=== PATIENT | female | born 1980 | race Caucasian/White ===

== ENCOUNTER 2022-08-19 13:29 | Emergency (ER) | payer OTHER, SELFPAY ==
--- NOTE | ~2022-08-19 | CT_ITS ---
EXAMINATION: CT abdomen pelvis wo con DATE: 08/19/2022 15:13 INDICATION: kidney stone TECHNIQUE: Computed tomography (CT) of the abdomen and pelvis was performed without intravenous contr ast. Automated exposure control and iterative reconstruction technique were employed. The dose-length product was 231.90 mGy-cm. COMPARISON: None. FINDINGS: Lower thorax: Unremarkable Liver: Normal. Biliary/Gallbladder: Gallbladder is absent. No bile duct dilation. Pancreas: No mass or duct dilation. Spleen: Normal. Adrenals:No mass. Kidneys: No mass, stone, or hydronephrosis. GI tract: Short segment mild wall thickening with pericolonic inflammatory change in the distal sigmo id. No small or large bowel dilation. Normal appendix. Scattered diverticuli. Mesentery/Peritoneum: No ascites, mass, or free air. Retroperitoneum: No mass. Pelvis: Mild and focal posterior bladder wall thickening, otherwise the pelvic organs are within norm al limits. Retroverted, retroflexed uterus. Soft Tissues: Soft tissues and body wall unremarkable. Bones: No acute osseous finding. IMPRESSION: Acute uncomplicated diverticulitis Reviewed, dictated and finalized at location K.
[2022-08-19 13:43] VITALS: BP 131/92; PULSE 70; TEMP 36.7; O2SAT 98
[2022-08-19 14:25] LABS: Basophils Percent Auto 0.2 % (0.2-1.2); Eosinophils Absolute Auto 0.2 K/mm3 (0-0.3); Eosinophils Percent Auto 1.2 % (0-4.4); Hematocrit 40.5 % (37.0-47.0); Hemoglobin 13.5 g/dL (12.0-15.0); Immature Granulocyte Absolute 0.05 K/mm3 (0.00-0.031); Immature Granulocyte Percent A 0.4 % (0-0.5); Lymphocytes Percent Auto 18.9 % (18.3-44.2); Mean Corpuscular HGB Conc 33.3 g/dl (32-36); Mean Corpuscular Hemoglobin 30.7 pg (26-34); Mean Platelet Volume 9.5 fl (7.4-10.4); Monocytes Absolute Auto 0.7 K/mm3 (0.1-0.6); Neutrophils Absolute Auto 8.9 K/mm3 (1.3-6.7); Neutrophils Percent Auto 73.3 % (45.5-73.1); Platelet Count Result 314 k/mm3 (150-375); Red Cell Distribution Width 11.9 % (11.5-14.5); White Blood Count 12.1 K/mm3 (4.5-10.0)
[2022-08-19 14:39] LABS: Add Urine Microscopic? YES; Alanine Aminotransferase 60 U/L (6-35); Albumin Level 4.2 g/dL (3.5-5.1); Alkaline Phosphatase 52 U/L (38-126); Anion Gap 8 mmol/L (8-16); Appearance Urine Cloudy (Clear); Aspartate Amino Transferase 38 U/L (14-36); Bacteria Urine Trace /hpf; Bilirubin Urine Negative (Negative); Bilirubin,Total 0.4 mg/dL (0.2-1.3); Blood Urea Nitrogen 11 mg/dL (7-17); Blood Urine Negative (Negative); Calcium 8.6 mg/dL (8.4-10.2); Carbon Dioxide 27 mmol/L (22-30); Chloride 103 mmol/L (98-107); Color Urine Straw (Yellow); Estimated CRCL calculation 69 ml/min; Estimated Glomerular Filt Rate > 60; Glucose 82 mg/dL (65-110); Glucose Urine UA Negative (Negative); Ketones Urine Negative (Negative); Leukocyte Esterase Ur Negative LEU/UL (Negative); Mucus Urine Rare /lpf; Nitrate Urine Negative (Negative); Potassium 4.1 mmol/L (3.4-5.0); Protein Urine Negative (Negative); RBC Urine 0-2 /hpf (0-2); Sodium 138 mmol/L (137-145); Squamous Epithelial Cell Urine Many /hpf (Few); Urobilinogen Urine Negative mg/dL (<2.0); WBC Urine 0-3 /hpf
[2022-08-19 15:06] LABS: Specific Grav Ur 1.004 (1.001-1.035)
--- NOTE | 2022-08-19 15:35 | ED.FEMALEGU ---
HPI - Female Genitourinary General Chief complaint: Urogenital-Female Stated complaint: kidney stones/ infection ? Time Seen by Provider: 08/19/22 15:17 Source: patient Mode of arrival: ambulatory Limitations: no limitations History of Present Illness HPI Narrative: Patient presents to the emergency department for left-sided low back pain. Ongoing over the last week. No certain injury or trauma. Patient does report she has to do heavy lifting at work. Over the last couple of days she noted the pain started to radiate into her abdomen as well which prompted her to be seen. Reports she has had some diarrhea. Denies fever, vomiting, dysuria, hematuria. Related Data Allergies Allergy/AdvReac Type Severity Reaction Status Date / Time No Known Allergies Allergy Verified 08/19/22 13:32 Review of Systems Review of Systems: CONSTITUTIONAL: Denies fever GASTROINTESTINAL: Reports abdominal pain and diarrhea. Denies nausea, vomiting GENITOURINARY: Denies dysuria or hematuria. All systems reviewed & are unremarkable except as noted in HPI and below PMFSH Past Medical History Medical History (Updated 08/19/22 @ 15:43 by Veronica Wright PA-C) No active medical problems Surgical History Surgical History (Updated 05/13/20 @ 15:09 by Mireille Pena MD) S/P cholecystectomy Family History Family History (Updated 07/02/14 @ 07:13 by DOCTOR UNKNOWN) Father Carcinoma of colon Grandparent Carcinoma of colon Family history of malignant neoplasm of ovary Social History Social History (Updated 05/13/20 @ 14:39 by Poonam Lockwood) Smoking status: Never smoker Second hand tobacco smoke exposure: No Alcohol intake: current Drinks per week: 5 Substance use: never Substance use type: does not use 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 HEAD: Normocephalic, atraumatic. EYES: EOMI. CHEST: Clear to auscultation. No respiratory distress. No wheezes rales or rhonchi HEART: Regular rate and rhythm. No murmur heard. Normal peripheral pulses. ABDOMEN: Soft, nondistended, normal active bowel sounds. Mildly tender to palpation in the left lower quadrant, without guarding. No CVA tenderness EXTREMITIES: Normal range of motion. No edema. SKIN: Warm, dry, no rash. NEURO: No focal deficits. Alert and oriented x3. PSYCH: Normal mood and affect Course Vital Signs Vital signs: Vital Signs Temperature 98.1 F 08/19/22 13:43 Pulse Rate 70 08/19/22 13:43 Blood Pressure 131/92 H 08/19/22 13:43 Pulse Oximetry 98 08/19/22 13:43 Temperature 98.1 F 08/19/22 13:43 Pulse Rate 70 08/19/22 13:43 Blood Pressure 131/92 H 08/19/22 13:43 Pulse Oximetry 98 08/19/22 13:43 MDM - Female Genitourinary MDM Narrative Medical decision making narrative: Patient presents the emergency department for left lower quadrant pain. Ongoing over the last couple of days. She is afebrile and nontoxic-appearing. CBC with mild leukocytosis to 12.1. Metabolic panel and lipase without concerning findings. UA without evidence of infection. Bedside test is negative. CT scan of the abdomen and pelvis shows acute uncomplicated diverticulitis. Patient will be started on oral antibiotics. Instructed to have close follow-up with her primary doctor. She was given warnings to return to the ER Lab Data Attestation: I reviewed the patient's lab results. Result diagrams: 08/19/22 13:40 08/19/22 13:40 Labs: Lab Results 08/19/22 08/19/22 08/19/22 Range/Units 13:40 13:40 13:40 WBC 12.1 H (4.5-10.0) K/mm3 RBC 4.40 (4.2-5.4) M/mm3 Hgb 13.5 (12.0-15.0) g/dL Hct 40.5 (37.0-47.0) % MCV 92.0 (80-100) fl MCH 30.7 (26-34) pg MCHC 33.3 (32-36) g/dl RDW 11.9 (11.5-14.5) % Plt
[2022-08-19 15:49] VITALS: BP 130/76; PULSE 86; RESP 16; O2SAT 99
== END 2022-08-19 16:03 | disposition home or self-care (01) ==
PROVIDERS: Emergency Provider Emergency Medicine; PCP Family Medicine
DX: K57.32 Diverticulitis of large intestine without perforation or abscess without bleeding (principal)
CPT/HCPCS: 36415; 74176; 80053; 81001; 81025; 85025; 99284

== ENCOUNTER 2024-10-17 22:38 | Emergency (ER) | payer OTHER, SELFPAY ==
--- NOTE | ~2024-10-17 | CT_ITS ---
EXAMINATION: CT abdomen pelvis w con DATE: 10/18/2024 01:39 INDICATION: Lower abdominal pain TECHNIQUE: Computed tomography (CT) of the abdomen and pelvis was performed with 100 mL Omnipaque-350 intravenous contrast. Automated exposure control and iterative reconstruction technique were employe d. The dose-length product was 281.32 mGy-cm. COMPARISON: None FINDINGS: Heart size is normal. No pericardial or pleural effusion. Focal hepatic steatosis at the ligamentum t eres. Cholecystectomy clips the gallbladder fossa. Spleen and a couple small splenules, pancreas, darron ateral adrenal glands and kidneys are normal. Moderate to large amount of stool scattered throughout the colon. Small bowel and appendix are normal. 2.3 cm uterine fibroid. Bladder and bilateral adnexa are unremarkable. No free intraperitoneal gas or fluid. No pathologically enlarged abdominal or pelvi c lymphadenopathy. Mild lumbar spondylosis. IMPRESSION: 1. No acute intra-abdominal/pelvic process. 2. 2.3 cm uterine fibroid. Reviewed, dictated and finalized at location A. NATAL BREASTFEEDING ASSISTANT
[2024-10-17 22:41] VITALS: BP 151/90; PULSE 80; RESP 16; TEMP 37.1; O2SAT 99
[2024-10-17 23:00] LABS: Basophils Absolute Auto 0.1 K/mm3 (0.0-0.1); Basophils Percent Auto 0.7 % (0.2-1.2); Eosinophils Absolute Auto 0.5 K/mm3 (0-0.3); Eosinophils Percent Auto 5.6 % (0-4.4); Hemoglobin 14.5 g/dL (12.0-15.0); Immature Granulocyte Absolute 0.01 K/mm3 (0.00-0.031); Immature Granulocyte Percent A 0.1 % (0-0.5); Lymphocytes Absolute Auto 2.74 K/mm3 (0.9-3.2); Lymphocytes Percent Auto 30.3 % (18.3-44.2); Mean Corpuscular HGB Conc 34.5 g/dl (32-36); Mean Corpuscular Hemoglobin 30.9 pg (26-34); Mean Corpuscular Volume 89.6 fl (80-100); Mean Platelet Volume 9.3 fl (7.4-10.4); Monocytes Absolute Auto 0.6 K/mm3 (0.1-0.6); Monocytes Percent Auto 6.9 % (2.6-8.5); Neutrophils Absolute Auto 5.1 K/mm3 (1.3-6.7); Neutrophils Percent Auto 56.4 % (45.5-73.1); Platelet Count Result 341 k/mm3 (150-375); Red Blood Count 4.69 M/mm3 (4.2-5.4); Red Cell Distribution Width 11.9 % (11.5-14.5); White Blood Count 9.1 K/mm3 (4.5-10.0)
[2024-10-17 23:02] LABS: Add Urine Microscopic? NO; Appearance Urine Clear (Clear); Bilirubin Urine Negative (Negative); Blood Urine Negative (Negative); Color Urine Yellow (Yellow); Glucose Urine UA Negative (Negative); Ketones Urine Negative (Negative); Leukocyte Esterase Ur Negative LEU/UL (Negative); Nitrate Urine Negative (Negative); Protein Urine Negative (Negative); Specific Grav Ur 1.008 (1.001-1.035); Urobilinogen Urine 0.2 mg/dL (<2.0)
[2024-10-17 23:13] LABS: Alanine Aminotransferase 23 U/L (6-35); Albumin Level 4.6 g/dL (3.5-5.1); Alkaline Phosphatase 50 U/L (38-126); Anion Gap 7 mmol/L (4-12); Aspartate Amino Transferase 28 U/L (14-36); Bilirubin,Total 0.4 mg/dL (0.2-1.3); Blood Urea Nitrogen 8 mg/dL (7-17); Calcium 8.8 mg/dL (8.4-10.2); Carbon Dioxide 23 mmol/L (22-30); Chloride 106 mmol/L (98-107); Estimated CRCL calculation 88 ml/min; Estimated Glomerular Filt Rate > 60; Glucose 117 mg/dL (65-110); Lipase 89 U/L (23-300); Potassium 3.8 mmol/L (3.4-5.0); Sodium 136 mmol/L (137-145)
--- NOTE | 2024-10-17 23:44 | PC.NURSE ---
Pt c/o left lower back pain and left lower abdominal/left groin pain and nausea. Pt states her sx started yesterday
[2024-10-18 00:36] LABS: Serum Qual hCG Negative
[2024-10-18 00:37] LABS: SPREG INTERNAL CONTROL Positive
[2024-10-18] MEDS: SODIUM CHLORIDE 0.9% IV 1,000 ML 999 ML IV CONT (01:12)
--- NOTE | 2024-10-18 01:15 | ED.ABDPAIN ---
HPI - Abdominal Pain General Chief Complaint: Abdominal Pain Stated Complaint: left flank pain Time Seen by Provider: 10/17/24 23:12 History of Present Illness HPI narrative: Patient is a 44-year-old female who presents to the ER with left lower quadrant abdominal pain that radiates to her back. she reports the dog pain started yesterday morning. Patient endorses accompanying chills, fever, urinary urgency. She reports her last menstrual period October 20. Patient endorses a history of cholecystectomy, diverticulitis, and ovarian cyst. She denies burning with urination. Patient reports the pain tends to get worse with movement, for example, patient reports that she could not bend over earlier to tie her shoes. Related Data Allergies Allergy/AdvReac Type Severity Reaction Status Date / Time No Known Allergies Allergy Verified 10/17/24 22:40 Review of Systems Review of Systems: All systems reviewed & are unremarkable except as noted in HPI and below PMFSH Past Medical History Medical History No active medical problems Surgical History Surgical History S/P cholecystectomy Family History Family History Father Carcinoma of colon Grandparent Carcinoma of colon Family history of malignant neoplasm of ovary Social History Social History Smoking status: Never smoker Second hand tobacco smoke exposure: No Alcohol intake: current Drinks per week: 5 Substance use: never Substance use type: does not use Living arrangements: alone Occupation/Education: occupation 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 HEAD: Normocephalic, atraumatic. NECK: Supple. No adenopathy, no masses. RESPIRATORY: Airway patent, respirations nonlabored. Clear to auscultation bilaterally, no rales, rhonchi, wheezing. CARDIOVASCULAR: Regular rate and rhythm without murmurs, rubs, or gallops. Peripheral pulses 2+ and equal bilaterally. ABDOMINAL: Soft, mildly tender in LLQ with palpation, nondistended, no hepatosplenomegaly. Normoactive BS. MUSCULOSKELETAL: Moves all extremities. Strength/ROM intact without gross deformities. SKIN: Warm, dry, normal color. No rashes. NEURO: A&O X3. Speech clear. Cranial nerves II-XII grossly intact. Steady gait. No ataxic movements. PSYCHIATRIC: Appropriate mood and affect. Normal interaction. Course Vital Signs Vital signs: Vital Signs Temperature 37.1 C 10/17/24 22:41 Pulse Rate 80 10/17/24 22:41 Respiratory Rate 16 10/17/24 22:41 Blood Pressure 151/90 H 10/17/24 22:41 Pulse Oximetry 99 10/17/24 22:41 Oxygen Delivery Room Air 10/17/24 22:41 Temperature 37.1 C 10/17/24 22:41 Pulse Rate 80 10/17/24 22:41 Respiratory Rate 16 10/17/24 22:41 Blood Pressure 151/90 H 10/17/24 22:41 Pulse Oximetry 99 10/17/24 22:41 Oxygen Delivery Room Air 10/17/24 22:41 MDM - Abdominal Pain MDM Narrative Medical decision making narrative: Patient is a 44-year-old female who presents to the ER with left lower quadrant abdominal pain that radiates to her back. she reports the dog pain started yesterday morning. Patient endorses accompanying chills, fever, urinary urgency. She reports her last menstrual period October 20. Patient endorses a history of cholecystectomy, diverticulitis, and ovarian cyst. She denies burning with urination. Labs Ordered: CBC, CMP, lipase, UA, serum , COVID Imaging Ordered: CT abdomen pelvis with con Results: Patient's CBC was unremarkable. Her CMP indicated a sodium of 136, creatinine of 0.60, glucose of 117. Patient's urinalysis was unremarkable. Her abdominal / pelvis CT scan indicated no acute abnormalities. Diagnosis: Abdominal pain unknown etiology Patient Education/Shared MDM: Results shared with patient. She endorses feeling better after 1 L normal saline IV fluid bolus administered. In case pt's pain is muscular in nature, pt will be discharged home with Cyclobenzaprine. Patient and her partner verbalized understanding and are in agreement with patient being discharged home. Differential Diagnosis Differential diagnosis: Likely abdominal pain, acute appendicitis, calculus of kidney, constipation, diverticulitis, gastroenteritis and small bowel obstruction Lab Data Attestation: I reviewed the patient's lab results. 10/17/24 22:52 10/17/24 22:52 Labs: Lab Results 10/17/24 10/18/24 Range/Units 22:52 02:27 WBC 9.1 (4.5-10.0) K/mm3 RBC 4.69 (4.2-5.4) M/mm3 Hgb 14.5 (12.0-15.0) g/dL Hct 42.0 (37.0-47.0) % MCV 89.6 (80-100) fl MCH 30.9 (26-34) pg MCHC 34.5 (32-36) g/dl RDW 11.9 (11.5-14.5) % Plt Count 341 (150-375) k/mm3 MPV 9.3 (7.4-10.4) fl Immature Gran % (Auto) 0.1 (0-0.5) % Neut % (Auto) 56.4 (45.5-73.1) % Lymph % (Auto) 30.3 (18.3-44.2) % [place] % (Auto) 6.9 (2.6-8.5) % Eos % (Auto) 5.6 H (0-4.4) % Baso % (Auto) 0.7 (0.2-1.2) % Lymph # (Auto) 2.74 (0.9-3.2) K/mm3 [place] # (Auto) 0.6 (0.1-0.6) K/mm3 Eos # (Auto) 0.5 H (0-0.3) K/mm3 Baso # (Auto) 0.1 (0.0-0.1) K/mm3 Abs Immat Gran (auto) 0.01 (0.00-0.031) K/mm3 Absolute Neuts (auto) 5.1 (1.3-6.7) K/mm3 Absolute Nucleated RBC 0.000 (0.0-0.012) K/mm3 Nucleated RBC % 0.0 (0.0-0.2) % Sodium 136 L (137-145) mmol/L Potassium 3.8 (3.4-5.0) mmol/L Chloride 106 (98-107) mmol/L Carbon Dioxide 23 (22-30) mmol/L Anion Gap 7 (4-12) mmol/L BUN 8 (7-17) mg/dL Creatinine 0.60 L (0.7-1.0) mg/dL Estim Creat Clear Calc 88 ml/min Estimated GFR > 60 (59 - ) Glucose 117 H (65-110) mg/dL Calcium 8.8 (8.4-10.2) mg/dL Total Bilirubin 0.4 (0.2-1.3) mg/dL AST 28 (14-36) U/L ALT 23 (6-35) U/L Alkaline Phosphatase 50 (38-126) U/L Total Protein 8.0 (6.3-8.2) g/dL Albumin 4.6 (3.5-5.1) g/dL Lipase 89 (23-300) U/L Serum HCG, Qual Negative Urine Color Yellow (Yellow) Urine Appearance Clear (Clear) Urine pH 7.0 (5.0-9.0) Ur Specific [place] 1.008 (1.001-1.035) Urine Protein Negative (Negative) mg/dL Urine Glucose (UA) Negative (Negative) mg/dL Urine Ketones Negative (Negative) mg/dL Ur Blood (Man) Negative (Negative) Urine Nitrate Negative (Negative) Urine Bilirubin Negative (Negative) Urine Urobilinogen 0.2 (<2.0) mg/dL Leukocyte Esterase Rfl Negative (Negative) CAR/UL Influenza A (RT-PCR) Pending Influenza B (RT-PCR) Pending RSV (RT-PCR) Pending SARS-CoV-2 RNA (RT-PCR) Pending Imaging Data Attestation: I personally reviewed and interpreted this imaging study as follows: Radiologist's impression: Patient's abdominal CT scan showed no acute abnormalities. Discharge Plan Discharge Clinical Impression: Abdominal pain of unknown etiology Patient Disposition: Home, Self-Care Condition: Stable Instructions: Antibiotic Form, Abdominal Pain (ED) Additional Instructions: Please return to the ER with an worsening symptoms. Follow-up with primary care provider in the next 2-3 days. Take all medications as prescribed. Patient Language: St Helen[place] Prescriptions: New cyclobenzaprine 5 mg tablet 5 mg PO TID PRN (Reason: muscle spasm) Qty: 5 0RF No Action amoxicillin-pot clavulanate 875-125 mg tablet 1 tablet PO Q12H 10 Days Qty: 20 0RF Follow-up/Referrals: PHYSICIAN NOT ON STAFF,NONSTAFF [Primary Care Provider] - Time of Disposition: 03:11
[2024-10-18 03:06] LABS: Influenza A QL RT-PCR Negative (Negative); Influenza B QL RT-PCR Negative (Negative); RSV RNA, RT-PCR Negative (Negative); SARS-CoV-2 RNA PCR Negative (Negative)
[2024-10-18 03:59] VITALS: BP 134/82; PULSE 84; RESP 18; O2SAT 99
--- OUTSIDE RECORDS SUMMARY | 2024-10-21 16:28 | XMS_ITS | Encounter Summary ---
Author Organization [facility] Healthcare Address [address] [place] [id number] Care Team Providers Care Centrifugal Operator Name Role Phone Chase Blanchard Primary Care Provider Unavailabl e Encounter Details Date Type Department Care Team (Late st Contact Info) Description 08/11/2008 12:01 AM CDT - 08/11/2008 11:59 PM CDT Hospital Encounter [facility] Errol Dunne MD [address] [place] [address] [place] [address] Social History Tobacco Use Types Packs/Day Years Used Date Smoking Tobacco: Never Assessed Comments Unknown Sex and Gender Information Value Date Recorded Sex Assigned at Not on file Legal Sex Female 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
--- OUTSIDE RECORDS SUMMARY | 2024-10-21 16:28 | XMS_ITS | Encounter Summary ---
Author Organization [facility] Healthcare Address [address] [place] [id number] Care Team Providers Care Link Cutter Name Role Phone Chase Blanchard Primary Care Provider Unavailabl e Encounter Details Date Type Department Care Team (Late st Contact Info) Description 11/09/2011 7:13 AM SHOW CARD LETTERER - 11/09/2011 11:59 PM SHOW CARD LETTERER Hospital Encounter [facility]IN[facility] Chase Blanchard Enlarged lymph nodes Social History Tobacco Use Types Packs/Day Years Used Date Smoking Tobacco: Never Assessed Alcohol Use Standard Drinks/Week Comments Yes 0 (1 standard drink = 0.6 oz pur e alcohol) Comments Unknown Sex and Gender Information Value Date Recorded Sex Assigned at Not on file Legal Sex Female 11:56 PM SHOW CARD LETTERER Gender Identity Not on file Sexual Orientation Not on file documented as of this encounter Plan of Treatment Not on file documented as of this encounter Visit Diagnoses Diagnosis Enlarged lymph nodes Enlargement of lymph nodes documented in this encounter Care Teams Link Cutter Relationship Specialty Start Date End Date Chase Blanchard PCP - General 06/24/09 08/18/22 documented as of this encounter
--- OUTSIDE RECORDS SUMMARY | 2024-10-21 16:28 | XMS_ITS | Encounter Summary ---
Author Organization [facility] Address [address] [place] [id number] Care Team Providers Care Pulverizer Name Role Phone Dennis Brito MD Primary Care Provider Marcelina vailable Encounter Details Date Type Department Care Team (Late st Contact Info) Description 10/20/2020 Lab Requisition [facility] [address] [id number] [place] [address] [place] [address] Social History Tobacco Use Types Packs/Day Years Used Date Smoking Tobacco: Never Alcohol Use Standard Drinks/Week Comments Yes 2 (1 standard drink = 0.6 oz pur e alcohol) Sexually Active Control Partners Comments Yes Comments No Sex and Gender Information Value Date Recorded Sex Assigned at Not on file Legal Sex Female 8:54 PM CDT Gender Identity Not on file Sexual Orientation Not on file documented as of this encounter Plan of Treatment Not on file documented as of this encounter Procedures Procedure Name Priority Date/Time Associated Diagnosis Comments SARS-COV-2 PCR [facility] ONLY Routine 10/20/2020 1:16 PM TOP CLEANER documented in this encounter Visit Diagnoses Not on filedocumented in this encounter Care Teams Pulverizer Relationship Specialty Start Date End Date Dennis Brito MD PCP - General Internal Medicine 10/14/15 04/20/21 documented as of this encounter
--- OUTSIDE RECORDS SUMMARY | 2024-10-21 16:28 | XMS_ITS | Encounter Summary ---
Author Organization [facility] Address [address] [facility] [address] [place] [address] Care Team Providers Care Ecommerce Marketing Manager Name Role Phone Demar Ceballos MD Primary Care Provider [phone] Demar Ceballos MD Unavailable [phone] Reason for Visit * Reason Comments Insect Bite Onset of s/s was Sun.Location: R buttocks- Red bumpy, itchy and painful. Also has a swollen lymph node on her R side of the pelvis, noticed Sunday evening. Sore and tender. Feels like it has gotten larger.Self medicating w/ hydrocortisone. Encounter Details Date Type Department Care Team (Late st Contact Info) Description 08/03/2023 2:30 PM CDT Office Visit [facility] [address] [address] Shantell Bonner NP [address] [place] [address] [address] [place] [address] Herpes zoster without complication (Primary Dx) Social History Tobacco Use Types Packs/Day Years Used Date Smoking Tobacco: Never Smokeless Tobacco: Never Alcohol Use Standard Drinks/Week Comments Yes 0 (1 standard drink = 0.6 oz pur e alcohol) on occasion Comments Unknown Sex and Gender Information Value Date Recorded Sex Assigned at Not on file Legal Sex Female 11:56 PM CONTROL BOARD OPERATOR Gender Identity Not on file Sexual Orientation Not on file documented as of this encounter Last Filed Vital Signs Vital Sign Reading Time Taken Comments Blood Pressure 120/78 08/03/2023 2:11 PM CDT Pulse 75 08/03/2023 2:11 PM CDT Temperature 36.9 ??C (98.4 ??F) 08/03/2023 2:11 PM CD T Respiratory Rate 16 08/03/2023 2:11 PM CDT Oxygen Saturation 98% 08/03/2023 2:11 PM CDT Inhaled Oxygen Concentration - - Weight 59.4 kg (131 lb) 08/03/2023 2:11 PM CDT Height 154.9 cm (5' 1 ) 08/03/2023 2:11 PM CDT Body Mass Index 24.75 08/03/2023 2:11 PM CDT documented in this encounter Patient Instructions * Patient Instructions* Shantell oBnner, TRIM MECHANIC - 08/03/2023 2:30 PM CDT Shingles: Is shingles contagious? Yes and No. It is NOT possible to catch shingles from someone who has therash. But it is possible to catch the virus and then get sick with chickenpox. Shingles and chickenpox are caused by the same virus. You probably will NOT catch the virus (or get chickenpox) if you: Had chickenpox or shingle sin the past Had the chickenpox vaccine Were born in the [place] before 1979 (most people born before 1979 have had chickenpox even if they don't remember). Be careful around people who have never had chickenpox. Do not let them touch your rash. If they do, they could get sick with chickenpox. In rare cases, people can even get chickenpox from just beingnear someone with shingles. This is most likely in people who can not fight infections well. At first, shingles causes a weird sensation on your skin. You might feel itching, burning, pain, ortingling. Some people get a fever, feel sick, or get a headache. Within 1 to 2 days, a rash with blisters appears. Blisters most often appear in a band across the chest and back. They can show up on other parts of the body, too. The blisters cause pain that can be mild to severe. Within 3 to 4 days, shingles blisters can become open sores or ulcers . These ulcers can get infected. Within 7 to 10 days, the rash should scab over. By then, most people are no longer contagious. Shingles can also cause: -Skin infections (Keep the parts of your skin that have a rash clean and dry) -Eye problems (if the rash is near your eyes, follow up with parliamentary archivist as soon as possible) -Ear problems (if rash is near your ears) -Dangerous infections in people who have other health problems -You can take over the counter pain medication such as tylenol and / or ibuprofen (per package directions) as needed. * Attachments The following attachments cannot be sent through Care Everywhere. * Shingles (Automatic Presser) ([place] Islander) documented in this encounter Ordered Prescriptions Prescription Sig Dispense Quantity Refills Last Filled Start Date End Date valACYclovir (Valtrex) 1 gram tabletIndications: Herpes zoster without complication Take 1 tablet (1,000 mg total) by mouth every 8 (eight) hours for 7 days 21 tablet 08/03/2023 08/10/2023 documented in this encounter Progress Notes * Shantell Bonner NP - 08/03/2023 2:30 PM CDT Images from the original note were not included. Subjective/Objective Patient ID: Nydia Da Silva is a 42 y.o. female. Chief Complaint Insect Bite (Onset of s/s was Sunday./Location: R buttocks- Red bumpy, itchy and painful. Also has a swollen lymph node on her R side of the pelvis, noticed Sunday evening. Sore and tender. Feels like it has gotten larger./Self medicating w/ hydrocortisone. ) Patient presents to the clinic with reports of painful rash to her upper right butt cheek for 4 days. Patient reports area was tender prior to rash showing up. Patient denies fevers, chills, red streaking from rash, and difficulty breathing. Patient has used hydrocortisone cream on her rash with norelief. Review of Systems Constitutional: Negative for chills, fatigue and fever. Respiratory: Negative for cough. Cardiovascular: Negative for chest pain. Skin: Positive for rash (right buttocks). Neurological: Negative for weakness and headaches. Physical Exam Vitals reviewed. Constitutional: General: She is not in acute distress. Appearance: Normal appearance. She is not ill-appearing. HENT: Head: Normocephalic. Mouth/Throat: Lips: [place]. Cardiovascular: Rate and Rhythm: Normal rate. Pulmonary: Effort: Pulmonary effort is normal. Breath sounds: Normal breath sounds. Skin: General: Skin is warm. Comments: Erythematous papules in grouped, linear distribution with multiple vesicles present. No increased warmth, erythema, induration, and/or red streaking from the wound/lesions. No active drainage. Sensation intact. Mild TTP. Neurological: Mental Status: She is alert and oriented to person, place, and time. Psychiatric: Mood and Affect: Mood normal. Vitals: 08/03/23 1411 BP: 120/78 BP Location: Right arm Patient Position: Sitting Pulse: 75 Resp: 16 Temp: 36.9 ??C (98.4 ??F) TempSrc: Temporal SpO2: 98% Weight: 59.4 kg (131 lb) Height: 154.9 cm (5' 1 ) Assessment/Plan --assessment and patient's symptoms consistent with shingles. Did discuss with patient probability of HSV infection. Patient denies any history of HSV and reports a monogamous relationship with no concerns for STDs. --prescribed antiviral, use as directed --patient may take Tylenol or ibuprofen as needed for pain --monitor rash in if it worsens follow-up with primary care doctor, clinic, or in the ER if needed. Diagnoses and all orders for this visit: Herpes zoster without complication (Primary) - valACYclovir (Valtrex) 1 gram tablet; Take 1 tablet (1,000 mg total) by mouth every 8 (eight) hours for 7 days Patient Education: Shingles: Is shingles contagious? Yes and No. It is NOT possible to catch shingles from someone who has therash. But it is possible to catch the virus and then get sick with chickenpox. Shingles and chickenpox are caused by the same virus. You probably will NOT catch the virus (or get chickenpox) if you: Had chickenpox or shingle sin the past Had the chickenpox vaccine Were born in the [place] before 1979 (most people born before 1979 have had chickenpox even if they don't remember). Be careful around people who have never had chickenpox. Do not let them touch your rash. If they do, they could get sick with chickenpox. In rare cases, people can even get chickenpox from just beingnear someone with shingles. This is most likely in people who can not fight infections well. At first, shingles causes a weird sensation on your skin. You might feel itching, burning, pain, ortingling. Some people get a fever, feel sick, or get a headache. Within 1 to 2 days, a rash with blisters appears. Blisters most often appear in a band across the chest and back. They can show up on other parts of the body, too. The blisters cause pain that can be mild to severe. Within 3 to 4 days, shingles blisters can become open sores or ulcers . These ulcers can get infected. Within 7 to 10 days, the rash should scab over. By then, most people are no longer contagious. Shingles can also cause: -Skin infections (Keep the parts of your skin that have a rash clean and dry) -Eye problems (if the rash is near your eyes, follow up with parliamentary archivist as soon as possible) -Ear problems (if rash is near your ears) -Dangerous infections in people who have other health problems -You can take over the counter pain medication such as tylenol and / or ibuprofen (per package directions) as needed. Disposition Treatment plan including expectations, follow up, and return precautions discussed with patient/parent, verbalizes understanding. Medication dosage, use, and potential adverse reactions discussed with patient/parent. Advised to follow up with PCP if symptoms do not resolve as expected or sooner if condition worsens. Signs/symptoms warranting ER evaluation reviewed. Patient and/or guardian was given an opportunity to ask questions, questions answered. Shantell Bonner NP 08/03/23 2:33 PM documented in this encounter Plan of Treatment Not on file documented as of this encounter Visit Diagnoses Diagnosis Herpes zoster without complication- Primary documented in this encounter Historical Medications * This list may reflect changes made after this encounter. albuterol HFA (PROVENTIL HFA,VENTOLIN HFA,PROAIR HFA) 90 mcg/actuation inhaler TAKE 2 PUFFS BY MOUTH 4 TIMES A DAY NEEDED 05/30/2023 added in this encounter Care Teams Ecommerce Marketing Manager Relationship Specialty Start Date End Date Demar Ceballos MD PCP - General Internal Medicine 08/03/23 Demar Ceballos MD Internal Medicine 08/03/23 documented as of this encounter
--- OUTSIDE RECORDS SUMMARY | 2024-10-21 16:28 | XMS_ITS | Encounter Summary ---
Author Organization [facility] Address [address] [place] [address] Care Team Providers Care Transcription Coordinator Name Role Phone Chase Blanchard Primary Care Provider Unavailabl e Reason for Visit * Reason Comments Flank Pain Right sided Encounter Details Date Type Department Care Team (Late st Contact Info) Description 11/20/2017 3:08 PM REWORK MACHINE OPERATOR - 11/20/2017 4:48 PM REWORK MACHINE OPERATOR Emergency [facility] Emergency Department [address] [place] [address] Beverley Lay MD [address] [place] [address] [id number] [place] [address] Muscle spasm of back (Primary Dx) Discharge Disposition: Discharge to home or self care Social History Tobacco Use Types Packs/Day Years Used Date Smoking Tobacco: Never Smokeless Tobacco: Never Alcohol Use Standard Drinks/Week Comments Yes 0 (1 standard drink = 0.6 oz pur e alcohol) on occasion Comments Unknown Sex and Gender Information Value Date Recorded Sex Assigned at Not on file Legal Sex Female 11:56 PM REWORK MACHINE OPERATOR Gender Identity Not on file Sexual Orientation Not on file documented as of this encounter Last Filed Vital Signs Vital Sign Reading Time Taken Comments Blood Pressure 143/99 11/20/2017 3:14 PM REWORK MACHINE OPERATOR Pulse 74 11/20/2017 3:14 PM REWORK MACHINE OPERATOR Temperature 37.2 ??C (98.9 ??F) 11/20/2017 3:14 PM CS T Respiratory Rate 18 11/20/2017 3:14 PM REWORK MACHINE OPERATOR Oxygen Saturation 99% 11/20/2017 3:14 PM REWORK MACHINE OPERATOR Inhaled Oxygen Concentration - - Weight 53.5 kg (118 lb) 11/20/2017 3:14 PM REWORK MACHINE OPERATOR Height 154.9 cm (5' 1 ) 11/20/2017 3:14 PM REWORK MACHINE OPERATOR Body Mass Index 22.3 11/20/2017 3:14 PM REWORK MACHINE OPERATOR documented in this encounter Discharge Instructions * Attachments The following attachments cannot be sent through Care Everywhere. * Back Spasm, No Trauma ([place]e) documented in this encounter Medications at Time of Discharge cyclobenzaprine (FLEXERIL) 10 mg tablet Take 1 tablet (10 mg total) by mouth every 8 (eight) hours as needed for muscle spasms. 20 tablet 11/20/2017 documented as of this encounter Ordered Prescriptions Prescription Sig Dispense Quantity Refills Last Filled Start Date End Date cyclobenzaprine (FLEXERIL) 10 mg tablet Take 1 tablet (10 mg total) by mouth every 8 (eight) hours as needed for muscle spasms. 20 tablet 11/20/2017 documented in this encounter Discharge Disposition Disposition Code Departure Means Destination Discharge to home or self care documented in this encounter ED Notes * Stephanie Vargas, MARGARITO - 11/20/2017 3:24 PM CST HPI Chief Complaint Patient presents with ??? Flank Pain Right sided Pt states she had flu like symptoms last week. Symptoms have started to improve however she has had5 days of right flank pain. Pain does not improve with Ibuprofen. Nothing makes pain better or worse. Pain waxes and wanes. No recent fevers. Denies urinary symptoms. No other complaints. Patient History History reviewed. No pertinent past medical history. Past Surgical History: Procedure Laterality Date ??? CHOLECYSTECTOMY 2006 gallbladder removed Family History Problem Relation Age of Onset ??? Colon cancer Father Cancer -colon; ??? Migraines Father Migraines; ??? Other Mother Alive and well; ??? Other Father Alive and well; Social History Substance Use Topics ??? Smoking status: Never Smoker ??? Smokeless tobacco: Never Used ??? Alcohol use Yes Comment: on occasion Review of Systems Review of Systems Constitutional: Negative for chills and fever. HENT: Negative for ear pain and sore throat. Eyes: Negative for pain and visual disturbance. Respiratory: Positive for cough. Negative for shortness of breath. Cardiovascular: Negative for chest pain and palpitations. Gastrointestinal: Negative for abdominal pain and vomiting. Genitourinary: Negative for dysuria and hematuria. Musculoskeletal: Positive for back pain. Negative for arthralgias. Skin: Negative for color change and rash. Neurological: Negative for seizures and syncope. All other systems reviewed and are negative. Physical Exam ED Triage Vitals [11/20/17 1514] Temp Pulse Resp BP SpO2 37.2 ??C (98.9 ??F) 74 18 143/99 99 % Temp src Heart Rate Source Patient Position BP Location FiO2 (%) Oral -- -- -- -- Physical Exam Constitutional: She appears well-developed and well-nourished. No distress. HENT: Head: Normocephalic and atraumatic. Eyes: Conjunctivae are normal. Neck: Neck supple. Cardiovascular: Normal rate and regular rhythm. No murmur heard. Pulmonary/Chest: Effort normal and breath sounds normal. No respiratory distress. Abdominal: Soft. There is no tenderness. Musculoskeletal: She exhibits no edema. Mild right CVA tenderness. No vertebral tenderness. Neurological: She is alert. Skin: Skin is warm and dry. Psychiatric: She has a normal mood and affect. Nursing note and vitals reviewed. ED Course & MDM ED Course MDM Muscle spasm of back Stephanie Vargas NP 11/20/17 1648 Cosigned by Beverley Lay MD at 11/20/2017 9:06 PM REWORK MACHINE OPERATOR RK MACHINE OPERATOR RK MACHINE OPERATOR Associated attestation - Beverley Lay MD - 11/20/2017 9:06 PM REWORK MACHINE OPERATOR ED Attestation Based on the medical record the care appears appropriate. . But I was not required to see or examine the patient. Hence I was not involved in patient care. documented in this encounter Plan of Treatment Not on file documented as of this encounter Procedures Procedure Name Priority Date/Time Associated Diagnosis Comments CT KUB STONE WO CONTRAST ED 11/20/2017 4:32 PM REWORK MACHINE OPERATOR XR CHEST PA LATERAL 2 VIEWS ED 11/20/2017 3:59 PM REWORK MACHINE OPERATOR URINALYSIS AND REFLEX TO MICROSCOPIC AND CULTURE STAT 11/20/2017 3:17 PM REWORK MACHINE OPERATOR URINALYSIS, MICROSCOPIC ONLY STAT 11/20/2017 3:17 PM REWORK MACHINE OPERATOR DISCHARGE LABORATORY CUMULATIVE REPORT 11/20/2017 12:00 AM REWORK MACHINE OPERATOR documented in this encounter Results * CT KUB Stone WO Contrast (11/20/2017 4:32 PM REWORK MACHINE OPERATOR) Anatomical Region Laterality Modality Abdomen N/A Computed Tomogra phy Impressions 11/20/2017 4:40 PM REWORK MACHINE OPERATOR NO HYDRONEPHROSIS OR NEPHROLITHIASIS. MARKEDLY DISTENDED URINARY BLADDER. NO ACUTE ABDOMINAL PELVIC PATHOLOGY OTHERWISE NOTED. Electronically signed by: Jen Pimentel M.D. Narrative 11/20/2017 4:40 PM REWORK MACHINE OPERATOR RESULT: Examination: ??CT KUB STONE WO CONTRAST Date: 11/20/2017 4:25 PM Clinical History: ?? Right flank pain Technique: Noncontrast CT abdomen pelvis obtained with renal stone protocol. Comparison: CT abdomen pelvis 08/20/2016 Findings: No hydronephrosis or nephrolithiasis or perinephric edema is seen. The upper abdomen is only partially visualized but noncontrast appearance of the imaged liver, spleen, pancreas, and adrenals is unremarkable. ??There are 2 small splenules. ??Cholecystectomy clips noted. ??No biliary distention is seen. ??Normal caliber aorta is present. Nondistended stomach is seen. ??Moderate retained colonic contents noted. ??A normal appendix is seen. ??No small bowel obstruction noted. A markedly distended urinary bladder is seen. ??Unenhanced appearance of uterus and adnexa is not remarkable. ??A tubular lucency within the vagina is compatible with a tampon. ??No free fluid is seen. ?? No enlarged nodes are identified. ??Small small mesenteric nodes are again seen. Procedure Note Jen Pimentel MD / ProviderMarilu MD - 11/20/2017 RESULT: Examination: CT KUB STONE WO CONTRAST Date: 11/20/2017 4:25 PM Clinical History: Right flank pain Technique: Noncontrast CT abdomen pelvis obtained with renal stone protocol. Comparison: CT abdomen pelvis 08/20/2016 Findings: No hydronephrosis or nephrolithiasis or perinephric edema is seen. The upper abdomen is only partially visualized but noncontrast appearance of the imaged liver, spleen, pancreas, and adrenals is unremarkable. There are 2 small splenules. Cholecystectomy clips noted. No biliary distention is seen. Normal caliber aorta is present. Nondistended stomach is seen. Moderate retained colonic contents noted. A normal appendix is seen. No small bowel obstruction noted. A markedly distended urinary bladder is seen. Unenhanced appearance of uterus and adnexa is not remarkable. A tubular lucency within the vagina is compatible with a tampon. No free fluid is seen. No enlarged nodes are identified. Small small mesenteric nodes are again seen. IMPRESSION: NO HYDRONEPHROSIS OR NEPHROLITHIASIS. MARKEDLY DISTENDED URINARY BLADDER. NO ACUTE ABDOMINAL PELVIC PATHOLOGY OTHERWISE NOTED. Electronically signed by: Jen Pimentel M.D. Stephanie Vargas NP IMG CT PROCEDURES Fi nal Result * XR Chest Pa Lateral 2 Vw (11/20/2017 3:59 PM REWORK MACHINE OPERATOR) Anatomical Region Laterality Modality Body, Chest N/A Computed Radiogr aphy Impressions 11/20/2017 4:04 PM REWORK MACHINE OPERATOR No Acute Cardiopulmonary Abnormality. Electronically signed by: Kal Castaneda M.D. Narrative 11/20/2017 4:04 PM REWORK MACHINE OPERATOR RESULT: EXAMINATION: PA AND LATERAL CHEST RADIOGRAPHS Date: 11/20/2017 3:50 PM History: COUGH, PERSISTENT Comparison: None. Findings: The lungs are free of acute peripheral opacities. There is no pneumothorax or pleural effusion. The heart size is normal. The visualized osseous structures appear intact. Procedure Note Kal Castaneda MD / Provider, MD Marilu - 11/20/2017 RESULT: EXAMINATION: PA AND LATERAL CHEST RADIOGRAPHS Date: 11/20/2017 3:50 PM History: COUGH, PERSISTENT Comparison: None. Findings: The lungs are free of acute peripheral opacities. There is no pneumothorax or pleural effusion. The heart size is normal. The visualized osseous structures appear intact. IMPRESSION: No Acute Cardiopulmonary Abnormality. Electronically signed by: Kal Castaneda M.D. Stephanie Vargas CRIMINAL RESEARCH SPECIALIST IMG XR PROCEDURES Fi nal Result * (ABNORMAL) Urinalysis, microscopic only (11/20/2017 3:17 PM REWORK MACHINE OPERATOR) RBC, ur 0 0 - 3 /HPF [facility] WBC, ur <1 0 - 5 /HPF [facility] Bacteria, ur Trace [facility] Epithelial cells, renal, ur 0 0 - 0 /HPF [facility] Epithelial cells, squamous, ur 1 /LPF [facility] Hyaline casts, ur 1(H) 0 - 0 /LPF [facility] Urine 11/20/2017 3:17 PM REWORK MACHINE OPERATOR 11/20/2017 3:25 PM REWORK MACHINE OPERATOR Narrative [facility] - 11/20/2017 4:13 PM REWORK MACHINE OPERATOR Brooks Noriega MD LAB [place]INE [place] [id number] [address] [place] [address] * (ABNORMAL) Urinalysis reflex to microscopic and culture (11/20/2017 3:17 PM REWORK MACHINE OPERATOR) Color, ur Straw [facility] Clarity, ur Clear [facility] Specific gravity, ur 1.004 1.001 - 1.033 [facility] pH, ur 7.0 5.0 - 8.0 [facility] Protein, ur ql Negative Negative [facility] Glucose, ur ql Negative Negative [facility] Ketones, ur Negative Negative [facility] Bilirubin, ur Negative Negative [facility] Blood, ur 1+(A) Negative [facility] Urobilinogen, ur <2.0 <2.0 [facility] Nitrites, ur Negative Negative [facility] Leukocyte esterase, ur Negative Negative [facility] Urine 11/20/2017 3:17 PM REWORK MACHINE OPERATOR 11/20/2017 3:25 PM REWORK MACHINE OPERATOR Narrative [facility] - 11/20/2017 3:53 PM REWORK MACHINE OPERATOR Beverley Lay MD LAB MICROBIOLOGY - GENERAL MARIBEL KOKOELENO Final Result JOCELINE JIMENEZ [address] [place] [address] * DISCHARGE LABORATORY CUMULATIVE REPORT (11/20/2017 12:00 AM REWORK MACHINE OPERATOR) Narrative 11/20/2017 12:00 AM REWORK MACHINE OPERATOR Ordered by an unspecified provider. Historical Provider LAB BLOOD ORDERABLES Adela l Result documented in this encounter Visit Diagnoses Diagnosis Muscle spasm of back- Primary documented in this encounter Administered Medications Inactive Administered Medications - up to 3 most recent administrations Medication Order MAR Action Action Date Dose Rate Site ketorolac (TORADOL) intramuscular injection 60 mg 60 mg, intramuscular, Once, On Sun11/20/17 at 1530, For 1 dose Given 11/20/2017 3:36 PM REWORK MACHINE OPERATOR 60 mg Right Ventrogluteal documented in this encounter Active and Recently Administered Medications Times are shown in REWORK MACHINE OPERATOR. Scheduled Medication Order 11/18/2017 11/19/2017 11/20/2017 ketorolac (TORADOL) intramuscular injection 60 mg (COMPLETED) 60 mg, intramuscular, Once, On Sun11/20/17 at 1530, For 1 dose 1536 (Given - Provid er: Donna Ruiz RN) documented in this encounter Orders Medications Ordered That Govind ht Not Have Been Administered Count Last Ordered Date First Ordered Date ketorolac (TORADOL) intramus cular injection 60 mg 1 11/20/2017 documented in this encounter Care Teams Transcription Coordinator Relationship Specialty Start Date End Date Chase Blanchard PCP - General 06/24/09 08/18/22 documented as of this encounter
--- OUTSIDE RECORDS SUMMARY | 2024-10-21 16:28 | XMS_ITS | Encounter Summary ---
Author Organization [facility] Address [address] [place] [address] Care Team Providers Care Rehab Nurse Name Role Phone Dennis Brito MD Primary Care Provider Marcelina vailable Encounter Details Date Type Department Care Team (Late st Contact Info) Description 10/20/2020 1:00 PM TALLOW PUMPER Rapid Evaluation [facility] Mobile Testing [address] [place] [address] Social History Tobacco Use Types Packs/Day Years [...] on filedocumented in this encounter Care Teams Rehab Nurse Relationship Specialty Start Date End Date Dennis Brito MD PCP - General Internal Medicine 10/14/15 04/20/21 documented as of this encounter
--- OUTSIDE RECORDS SUMMARY | 2024-10-21 16:28 | XMS_ITS | Encounter Summary ---
Author Organization [facility] Healthcare Address [address] [place] [address] Care Team Providers Care Student Career Development Specialist Name Role Phone Demar Ceballos MD Primary Care Provider [phone] Demar Ceballos MD Unavailable [phone] Encounter Details Date Type Department Care Team (Latest Contact Info) Description 06/07/2024 8:55 AM CDT - 06/07/2024 11:59 PM CDT Hospital Encounter [address] [address] Nasopharyngitis acute Discharge Disposition: Discharge to home or self care Social History Tobacco Use Types Packs/Day Years Used Date Smoking Tobacco: Never Smokeless Tobacco: Never Alcohol Use Standard Drinks/Week Comments Yes 0 (1 standard drink = 0.6 oz pur e alcohol) on occasion Comments Unknown Sex and Gender Information Value Date Recorded Sex Assigned at Not on file Legal Sex Female 11:56 PM TRUCK LOADER Gender Identity Not on file Sexual Orientation Not on file documented as of this encounter Medications at Time of Discharge albuterol HFA (PROVENTIL HFA,VENTOLIN HFA,PROAIR HFA) 90 mcg/actuation inhaler TAKE 2 PUFFS BY MOUTH 4 TIMES A DAY NEEDED 05/30/2023 cyclobenzaprine (FLEXERIL) 10 mg tablet Take 1 tablet (10 mg total) by mouth every 8 (eight) hours as needed for muscle spasms. 20 tablet 11/20/2017 mupirocin (BACTROBAN) 2 % ointmentIndicati ons:Paronychia of fifth toe of right foot Apply topically 3 (three) times a day 22 g 09/18/2023 documented as of this encounter Discharge Disposition Disposition Code Departure Means Destination Discharge to home or self care documented in this encounter Miscellaneous Notes * Result Encounter Note - Shantell Bonner NP - 06/07/2024 11:59 PM CDT Please alert patient of negative strep culture. Patient should continue tylenol/ibuprofen as directed for discomfort and f/u with PCP if symptoms persist. * Result Encounter Note - Bret Anguiano MA - 06/07/2024 11:59 PM CDT Results given documented in this encounter Plan of Treatment Not on file documented as of this encounter Procedures Procedure Name Priority Date/Time Associated Diagnosis Comments THROAT CULTURE Routine 06/07/2024 8:55 AM CDT Nasopharyngitis acute documented in this encounter Results * Throat culture Throat (06/07/2024 8:55 AM CDT) Report Final Report: No growth of pathogens. Comment:Testing performed by : [facility], [address] [place] [address] Throat 06/07/2024 8:55 AM CDT 06/07/2024 6:33 PM CDT Narrative JOCELINE JIMENEZ - 06/08/2024 2:24 PM CDT Testing performed by [facility] ([phone]). us Shantell Bonner NP LAB MICROBIOLOGY - GENERAL ORD ERABLES Final Result JOCELINE JIMENEZ [address] Department [place] [address] documented in this encounter Visit Diagnoses Diagnosis Nasopharyngitis acute Acute nasopharyngitis (common cold) documented in this encounter Care Teams Student Career Development Specialist Relationship Specialty Start Date End Date Demar Ceballos MD PCP - General Internal Medicine 08/03/23 Demar Ceballos MD Internal Medicine 08/03/23 documented as of this encounter
--- OUTSIDE RECORDS SUMMARY | 2024-10-21 16:28 | XMS_ITS | Encounter Summary ---
Author Organization [facility] Healthcare Address [address] [place] [address] Care Team Providers Care Dampener Operator Name Role Phone Demar Ceballos MD Primary Care Provider [phone] Demar Ceballos MD Unavailable [phone] Reason for Visit * Reason Comments Toe Injury Pt c/o right pinky t oe pain. Pt states pain is more of an annoyance throughout the day, no radiation of pain.Pt states they do not remember an incident of injury, but it has been getting progressively more painful. Toe is red, swollen, no discoloration or discharge.S/s started 2 weeks ago. Pt has self medicated with neosporin and ibuprofen. Encounter Details Date Type Department Care Team (Late st Contact Info) Description 09/18/2023 3:00 PM EPITAXIAL REACTOR OPERATOR Office Visit [facility] at [address] [phone] Shantell Bonner, IRON MOLDER HELPER [address] [place] [id number] Ingrown nail of fifth toe of right foot (Primary Dx); Paronychia of fifth toe of right foot Social History Tobacco Use Types Packs/Day Years Used Date Smoking Tobacco: Never Smokeless Tobacco: Never Alcohol Use Standard Drinks/Week Comments Yes 0 (1 standard drink = 0.6 oz pur e alcohol) on occasion Comments Unknown Sex and Gender Information Value Date Recorded Sex Assigned at Not on file Legal Sex Female 11:56 PM EPITAXIAL REACTOR OPERATOR Gender Identity Not on file Sexual Orientation Not on file documented as of this encounter Last Filed Vital Signs Vital Sign Reading Time Taken Comments Blood Pressure 124/78 09/18/2023 2:36 PM EPITAXIAL REACTOR OPERATOR Pulse 71 09/18/2023 2:36 PM EPITAXIAL REACTOR OPERATOR Temperature 36.9 ??C (98.5 ??F) 09/18/2023 2:36 PM CS T Respiratory Rate 16 09/18/2023 2:36 PM EPITAXIAL REACTOR OPERATOR Oxygen Saturation 98% 09/18/2023 2:36 PM EPITAXIAL REACTOR OPERATOR Inhaled Oxygen Concentration - - Weight 62.6 kg (138 lb) 09/18/2023 2:36 PM EPITAXIAL REACTOR OPERATOR Height 154.9 cm (5' 1 ) 09/18/2023 2:36 PM EPITAXIAL REACTOR OPERATOR Body Mass Index 26.07 09/18/2023 2:36 PM EPITAXIAL REACTOR OPERATOR documented in this encounter Patient Instructions * Patient Instructions* Shantell Bonner NP - 09/18/2023 3:00 PM EPITAXIAL REACTOR OPERATOR --treatment with topical and oral antibiotics --warm water or antiseptic soaks multiple times per day is usually effective. --Apply triple antibiotic ointment after each warm soak. Warm soaks should last 10 to 15 minutes If symptoms persist greater than 7-10 days or worsen at any time, follow up with your primary health care provider, clinic or emergency care AXIAL REACTOR OPERATOR * Attachments The following attachments cannot be sent through Care Everywhere. * Ingrown Nail (Weeder) (Salvadorean) documented in this encounter Ordered Prescriptions Prescription Sig Dispense Quantity Refills Last Filled Start Date End Date mupirocin (BACTROBAN) 2 % ointmentIndication s:Paronychia of fifth toe of right foot Apply topically 3 (three) times a day 22 g 09/18/2023 cephalexin (KEFLEX) 500 mg capsuleIndications :Paronychia of fifth toe of right foot Take 1 capsule (500 mg total) by mouth 4 (four) times a day for 7 days 28 capsule 09/18/2023 3 documented in this encounter Progress Notes * Shantell Bonner NP - 09/18/2023 3:00 PM CST Images from the original note were not included. Subjective/Objective Patient ID: Nydia Da Silva is a 42 y.o. female. Chief Complaint Toe Injury (Pt c/o right pinky toe pain. Pt states pain is more of an annoyance throughout the day,no radiation of pain./Pt states they do not remember an incident of injury, but it has been gettingprogressively more painful. Toe is red, swollen, no discoloration or discharge./S/s started 2 weeksago. /Pt has self medicated with neosporin and ibuprofen. ) Patient presents to the clinic with reports of right pinky toe pain for 2 weeks. Patient reports noinjury, no fevers, no drainage from wound, and no streaking from wound. Patient has taken ibuprofenand use topical Neosporin for her symptoms. She reports now that the toe is red and swollen. Review of Systems Constitutional: Negative for chills, fatigue and fever. Respiratory: Negative for cough. Cardiovascular: Negative for chest pain. Skin: Red and swollen toe Neurological: Negative for weakness and headaches. Physical Exam Vitals reviewed. Constitutional: General: She is not in acute distress. Appearance: Normal appearance. She is not ill-appearing. HENT: Head: Normocephalic. Mouth/Throat: Lips: [place]. Cardiovascular: Rate and Rhythm: Normal rate. Pulmonary: Effort: Pulmonary effort is normal. Breath sounds: Normal breath sounds. Skin: General: Skin is warm. Comments: Right pinky toe is erythematous mainly surrounding the toenail bed. No active drainage orstreaking seen. Toe is not warm to touch. Pain with palpation. Neurological: Mental Status: She is alert and oriented to person, place, and time. Psychiatric: Mood and Affect: Mood normal. Vitals: 09/18/23 1436 BP: 124/78 BP Location: Right arm Patient Position: Sitting Pulse: 71 Resp: 16 Temp: 36.9 ??C (98.5 ??F) TempSrc: Oral SpO2: 98% Weight: 62.6 kg (138 lb) Height: 154.9 cm (5' 1 ) Assessment/Plan # ingrown toenail infection --start Keflex and mupirocin --monitor marked erythema. Discussed streaking, spreading, or worsening erythema; present immediately to the ED for further evaluation. --keep extremity elevated --ibuprofen/tylenol for fever/pain, use as directed --ED presentation with one or more of the following symptoms: fever uncontrolled with antipyretics,shortness of breath, chest discomfort, uncontrolled n/v/d --f/u with PCP in 3-5 days if symptoms do not improve/worsen Diagnoses and all orders for this visit: Ingrown nail of fifth toe of right foot (Primary) Paronychia of fifth toe of right foot - cephalexin (KEFLEX) 500 mg capsule; Take 1 capsule (500 mg total) by mouth 4 (four) times a day for 7 days - mupirocin (BACTROBAN) 2 % ointment; Apply topically 3 (three) times a day Patient Education: --treatment with topical and oral antibiotics --warm water or antiseptic soaks multiple times per day is usually effective. --Apply triple antibiotic ointment after each warm soak. Warm soaks should last 10 to 15 minutes If symptoms persist greater than 7-10 days or worsen at any time, follow up with your primary health care provider, clinic or emergency care Ingrown Nail PROOF LOAD MECHANIC: An ingrown nail is when the edge of your fingernail or toenail grows into the skin next to it. The most common cause is when nails are trimmed too short. Common symptoms include the following: Painful, red, and swollen skin around your nail Sharp pain when you walk Pus around your cuticle (skin around your nail) Seek care immediately if: You have a red streak running up your leg or arm. Contact your healthcare provider if: Your pain is getting worse. Your nail and skin are more swollen or start to drain pus. You have a fever or chills. Your ingrown nail is not better in 7 days. You have questions or concerns about your condition or care. Medicines: Acetaminophen decreases pain and can be bought without a doctor's order. Ask how much to take and how often to take it. Follow directions. Acetaminophen can cause liver damage if not taken correctly. NSAIDs , such as ibuprofen, help decrease swelling, pain, and fever. This medicine is available with or without a doctor's order. NSAIDs can cause stomach bleeding or kidney problems in certain people. If you take blood thinner medicine, always ask your healthcare provider if NSAIDs are safe for you. Always read the medicine label and follow directions. Antibiotics help treat or prevent a bacterial infection. They may be given as an ointment, pill, orboth. Take your medicine as directed. Contact your healthcare provider if you think your medicine is not helping or if you have side effects. Tell your provider if you are allergic to any medicine. Keep a list of the medicines, vitamins, and herbs you take. Include the amounts, and when and why you take them. Bring the list or the pill bottles to follow-up visits. Carry your medicine list with you in case of an emergency. Self-care: Soak and lift the nail. Soak your ingrown nail in warm water for 20 minutes, 2 to 3 times each day.Then gently lift the edge of the ingrown nail away from the skin. Wedge a small piece of cotton or gauze under the corner of the nail. You can also put dental floss under the nail to lift the edge away from the skin. This may help keep the nail from growing into the skin. Keep your nails clean and dry. Wash your hands and feet with soap and water. Pat dry with a clean towel. Dry in between each toe. Do not put lotion between your toes. Prevent another ingrown nail: Carefully trim your nails. Cut your nails straight across. Do not cut them too short. Lightly file the nail corners if you have sharp edges. Do not round your nails. Do not rip or tear off the tips of your nails. This may cause your nail edge to grow into the skin. Use clippers, not nail scissors. Wear shoes and socks that fit well. Make sure they are not too tight. You may need to wear a shoe with the toe cut out, such as sandals, until your ingrown toenail heals. Do not wear shoes that have pointed toes or heels that are more than 2 inches high. Do not wear tight hose or socks. Wear socks that pull moisture away from your feet, such as cotton-acrylic blends. Inspect your nails daily. Look for signs of an ingrown nail. Manage problems early so the nail doesnot become infected. Follow up with your healthcare provider as directed: You may be referred to a client partner. Write down your questions so you remember to ask them during your visits. ?? Copyright [employer] 2021 Information is for End User's use only and may not be sold, redistributed or otherwise used for commercial purposes. All illustrations and images included in CareNotes?? are the copyrighted property of [employer]. or [employer] The above information is an welfare service aide only. It is not intended as medical advice for individual conditions or treatments. Talk to your doctor, nurse or pharmacist before following any medical regimen to see if it is safe and effective for you. Disposition Treatment plan including expectations, follow up, and return precautions discussed with patient/parent, verbalizes understanding. Medication dosage, use, and potential adverse reactions discussed with patient/parent. Advised to follow up with PCP if symptoms do not resolve as expected or sooner if condition worsens. Signs/symptoms warranting ER evaluation reviewed. Patient and/or guardian was given an opportunity to ask questions, questions answered. Shantell Bonner NP 09/18/23 2:52 PM Cosigned by Javier Mcmanus MD at 09/18/2023 3:10 PM EPITAXIAL REACTOR OPERATOR AXIAL REACTOR OPERATOR AXIAL REACTOR OPERATOR documented in this encounter Plan of Treatment Not on file documented as of this encounter Visit Diagnoses Diagnosis Ingrown nail of fifth toe of right foot- Primary Paronychia of fifth toe of right foot documented in this encounter Care Teams Dampener Operator Relationship Specialty Start Date End Date Demar Ceballos MD PCP - General Internal Medicine 08/03/23 Demar Ceballos MD Internal Medicine 08/03/23 documented as of this encounter
--- OUTSIDE RECORDS SUMMARY | 2024-10-21 16:28 | XMS_ITS | Encounter Summary ---
Author Organization [facility] Healthcare Address [address] [place] [address] Care Team Providers Care Automotive Fuel Systems Converter Name Role Phone Chase Blanchard Primary Care Provider Unavailabl e Encounter Details Date Type Department Care Team (Late st Contact Info) Description 11/09/2011 7:00 AM PROFESSOR OF PRACTICE - 11/09/2011 11:59 PM PROFESSOR OF PRACTICE Hospital Encounter [facility] Chase Blanchard Enlarged lymph nodes Social History Tobacco Use Types Packs/Day Years Used Date Smoking Tobacco: Never Assessed Alcohol Use Standard Drinks/Week Comments Yes 0 (1 standard drink = 0.6 oz pur e alcohol) Comments Unknown Sex and Gender Information Value Date Recorded Sex Assigned at Not on file Legal Sex Female 11:56 PM PROFESSOR OF PRACTICE Gender Identity Not on file Sexual Orientation Not on file documented as of this encounter Plan of Treatment Not on file documented as of this encounter Visit Diagnoses Diagnosis Enlarged lymph nodes Enlargement of lymph nodes documented in this encounter Care Teams Automotive Fuel Systems Converter Relationship Specialty Start Date End Date Chase Blanchard PCP - General 06/24/09 08/18/22 documented as of this encounter
--- OUTSIDE RECORDS SUMMARY | 2024-10-21 16:28 | XMS_ITS | Encounter Summary ---
Author Organization [facility] Healthcare Address [address] [place] [address] Care Team Providers Care Street Contractor Name Role Phone Chase Blanchard Primary Care Provider Unavailabl e Encounter Details Date Type Department Care Team (Latest Contact Info) Description 11/20/2017 3:47 PM SKI PATROL - 11/20/2017 11:59 PM SKI PATROL Hospital Encounter [facility] [address] [place], [place] [id number] Discharge Disposition: Discharge to home or self care Social History Tobacco Use Types Packs/Day Years Used Date Smoking Tobacco: Never Smokeless Tobacco: Never Alcohol Use Standard Drinks/Week Comments Yes 0 (1 standard drink = 0.6 oz pur e alcohol) on occasion Comments Unknown Sex and Gender Information Value Date Recorded Sex Assigned at Not on file Legal Sex Female 11:56 PM SKI PATROL Gender Identity Not on file Sexual Orientation Not on file documented as of this encounter Medications at Time of Discharge cyclobenzaprine (FLEXERIL) 10 mg tablet Take 1 tablet (10 mg total) by mouth every 8 (eight) hours as needed for muscle spasms. 20 tablet 11/20/2017 documented as of this encounter Discharge Disposition Disposition Code Departure Means Destination Discharge to home or self care documented in this encounter Plan of Treatment Not on file documented as of this encounter Procedures Procedure Name Priority Date/Time Associated Diagnosis Comments XR CHEST PA LATERAL 2 VIEWS ED 11/20/2017 3:59 PM SKI PATROL documented in this encounter Results * XR Chest Pa Lateral 2 Vw (11/20/2017 3:59 PM SKI PATROL) Anatomical Region Laterality Modality Body, Chest N/A Computed Radiogr aphy Impressions 11/20/2017 4:04 PM SKI PATROL No Acute Cardiopulmonary Abnormality. Electronically signed by: Kal Castaneda M.D. Narrative 11/20/2017 4:04 PM SKI PATROL RESULT: EXAMINATION: PA AND LATERAL CHEST RADIOGRAPHS Date: 11/20/2017 3:50 PM History: COUGH, PERSISTENT Comparison: None. Findings: The lungs are free of acute peripheral opacities. There is no pneumothorax or pleural effusion. The heart size is normal. The visualized osseous structures appear intact. Procedure Note Kal Castaneda MD / ProviderMarilu MD - 11/20/2017 RESULT: EXAMINATION: PA AND LATERAL CHEST RADIOGRAPHS Date: 11/20/2017 3:50 PM History: COUGH, PERSISTENT Comparison: None. Findings: The lungs are free of acute peripheral opacities. There is no pneumothorax or pleural effusion. The heart size is normal. The visualized osseous structures appear intact. IMPRESSION: No Acute Cardiopulmonary Abnormality. Electronically signed by: Kal Castaneda M.D. Stephanie Vargas CERTIFIED MEDICINE AIDE IMG XR PROCEDURES Fi nal Result documented in this encounter Visit Diagnoses Not on filedocumented in this encounter Care Teams Street Contractor Relationship Specialty Start Date End Date Chase Blanchard PCP - General 06/24/09 08/18/22 documented as of this encounter
--- OUTSIDE RECORDS SUMMARY | 2024-10-21 16:28 | XMS_ITS | Referral Summary ---
Author Organization [facility] [address] Address [address] [place] [id number] Care Team Providers Care Hunter Skin Diver Name Role Phone Demar Ceballos MD Primary Care Provider [phone] Demar Ceballos MD Unavailable [phone] Allergies No known active allergies Medications cyclobenzaprine (FLEXERIL) 10 mg tablet Take 1 tablet (10 mg total) by mouth every 8 (eight) hours as needed for muscle spasms. 20 tablet 8 Active Additional Information Patient not taking.Reported on 08/03/2023 albuterol HFA (PROVENTIL HFA,VENTOLIN HFA,PROAIR HFA) 90 mcg/actuation inhaler TAKE 2 PUFFS BY MOUTH 4 TIMES A DAY NEEDED 3 Active mupirocin (BACTROBAN) 2 % ointmentIndicat ions:Paronychia of fifth toe of right foot Apply topically 3 (three) times a day 22 g 3 Active Additional Information Patient not taking.Reported on 06/07/2024 Active Problems Problem Noted Date Diagnosed Date Lymphadenopathy 09/18/2023 Intractable migraine 05/19/2014 Overview (02/08/2017): MGRN UNSP W NTRC MGR STD Asthma 03/21/2014 Overview (02/09/2017): ASTHMA NOS Social History Tobacco Use Types Packs/Day Years Used Date Smoking Tobacco: Never Smokeless Tobacco: Never Alcohol Use Standard Drinks/Week Comments Yes 0 (1 standard drink = 0.6 oz pur e alcohol) on occasion Comments Unknown Sex and Gender Information Value Date Recorded Sex Assigned at Not on file Legal Sex Female 11:56 PM GUEST SERVICE MANAGER Gender Identity Not on file Sexual Orientation Not on file Last Filed Vital Signs Vital Sign Reading Time Taken Comments Blood Pressure 126/88 06/07/2024 8:29 AM CDT Pulse 75 06/07/2024 8:29 AM CDT Temperature 36.6 ??C (97.8 ??F) 06/07/2024 8:29 AM CD T Respiratory Rate 22 06/07/2024 8:29 AM CDT Oxygen Saturation 99% 06/07/2024 8:29 AM CDT Inhaled Oxygen Concentration - - Weight 56.7 kg (125 lb) 06/07/2024 8:29 AM CDT Height 156.2 cm (5' 1.5 ) 06/07/2024 8:29 AM CDT Body Mass Index 23.24 06/07/2024 8:29 AM CDT Plan of Treatment Not on file Insurance [facility] [place] [facility] [employer] [facility] Care Teams Hunter Skin Diver Relationship Specialty Start Date End Date Demar Ceballos MD PCP - General Internal Medicine 08/03/23 Demar Ceballos MD Internal Medicine 08/03/23
--- OUTSIDE RECORDS SUMMARY | 2024-10-21 16:28 | XMS_ITS | Encounter Summary ---
Author Organization [facility] Healthcare Address [address] [place] [address] Care Team Providers Care Aco Coordinator Name Role Phone Demar Ceballos MD Primary Care Provider [phone] Demar Ceballos MD Unavailable [phone] Encounter Details Date Type Department Care Team (Late st Contact Info) Description 06/09/2024 Telephone [facility] Care at [address] [phone] Shantell Bonner NP [address] [facility] [address] [place], [place] [id number] Social History Tobacco Use Types Packs/Day Years Used Date Smoking Tobacco: Never Smokeless Tobacco: Never Alcohol Use Standard Drinks/Week Comments Yes 0 (1 standard drink = 0.6 oz pur e alcohol) on occasion Comments Unknown Sex and Gender Information Value Date Recorded Sex Assigned at Not on file Legal Sex Female 11:56 PM RESEARCH QUALITY ASSURANCE SPECIALIST Gender Identity Not on file Sexual Orientation Not on file documented as of this encounter Miscellaneous Notes * Telephone Encounter - Leidy Sherman - 06/09/2024 5:18 PM CDT Patient called back and was given results of throat culture. Expressed understanding. documented in this encounter Plan of Treatment Not on file documented as of this encounter Visit Diagnoses Not on filedocumented in this encounter Care Teams Aco Coordinator Relationship Specialty Start Date End Date Demar Ceballos MD PCP - General Internal Medicine 08/03/23 Demar Ceballos MD Internal Medicine 08/03/23 documented as of this encounter
--- OUTSIDE RECORDS SUMMARY | 2024-10-21 16:28 | XMS_ITS | Clinical Summary ---
Author Organization [facility] Address [address], [facility] [address] [place] [address] Phone Care Team Providers Care Loader Name Role Phone Provider, None Primary Care Provider Unavailabl e Medications ALBUTEROL SULFATE HFA IN take by inhalation as needed. Active Active Problems Problem Noted Date Diagnosed Date Asthma Family History Medical History Relation Name Comments Cancer Father Migraines Father Relation Name Status Comments Father Mother Alive Social History Tobacco Use Types Packs/Day Years [...] Sign Reading Time Taken Comments Blood Pressure 102/62 10/18/2015 1:41 PM HEAD STOCK TRANSFER CLERK Pulse 71 10/18/2015 1:41 PM HEAD STOCK TRANSFER CLERK Temperature 36.3 ??C (97.3 ??F) 10/18/2015 1:41 PM CS T Respiratory Rate 16 10/18/2015 1:41 PM HEAD STOCK TRANSFER CLERK Oxygen Saturation 98% 10/18/2015 1:41 PM HEAD STOCK TRANSFER CLERK Inhaled Oxygen Concentration - - Weight 54.1 kg (119 lb 3.2 oz) 10/18/2015 1:41 P M HEAD STOCK TRANSFER CLERK Height 154.9 cm (5' 1 ) 10/18/2015 1:41 PM HEAD STOCK TRANSFER CLERK Body Mass Index 22.52 10/18/2015 1:41 PM HEAD STOCK TRANSFER CLERK Plan of Treatment Health Maintenance Due Date Last Done Comments Hepatitis C Virus (HCV) Screening 1981 TdaP Immunization 1981 Pneumococcal Immunization Co mbined (1 of 2 - PCV) 1987 Hepatitis B Immunization (1 of 3 - 19+ 3-dose series) 2000 Pap Smear 2002 Cervical Cancer Screening (CCS) 2011 HPV/Cotest 2011 Discussion re Starting/Frequ ency of Mammograms 2021 SARS-COV-2 Immunization (2022- season) 2023 Influenza Immunization (Seas on Ended) 2024 Meningococcal Immunization (ACWY) Aged Out No longer eligible based on patient's age to complete this topic Rotavirus Immunization Aged Out No lo nger eligible based on patient's age to complete this topic Care Teams Loader Relationship Specialty Start Date End Date Provider, None [place] PCP - General 04/21/21
--- OUTSIDE RECORDS SUMMARY | 2024-10-21 16:28 | XMS_ITS | Encounter Summary ---
Author Organization [facility] Address [address] [place] [address] Care Team Providers Care Wireless Manager Name Role Phone Demar Ceballos MD Primary Care Provider [phone] Demar Ceballos MD Unavailable [phone] Reason for Visit * Reason Comments Sore Throat Ear pain, right side is way worse x 1 week Encounter Details Date Type Department Care Team (Latest Contact Info) Description 06/07/2024 8:30 AM CDT Office Visit 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 Throat culture sent Take Tylenol (acetaminophen) or Advil/Motin (ibuprofen) as needed per package directions for fevers/pain. Gargle with warm salt water (1tsp salt/1 cup water) or warm tea with honey and lemon to soothe pain Frequent warm or cool liquids can be soothing, like ice chips, popsicles, chicken broth, and tea. If you still are not having relief with the above, you can try a Magic Mouthwash -Equal parts liquid antacid (e.g.Maalox) and children's Benadryl with a couple drops of Anbesol gargle and spit every 3-4 hours as needed. If you are not improving or worsening in the next 3-5 days you must RETURN to the clinic, go to your PCP, or Urgent Care/ER to be SEEN and reevaluated. * Attachments The following attachments cannot be sent through Care Everywhere. * Pharyngitis (Anatomy And Physiology Instructor) (Tunisian) documented in this encounter Progress Notes * Shantell Bonner NP - 06/07/2024 8:30 AM CDT Images from the original note were not included. Patient ID: Nydia Da Silva is a 43 y.o. female followed by Demar Ceballos MD Chief Complaint Patient presents with Sore Throat Ear pain, right side is way worse x 1 week Patient presents to the clinic with reports of sore throat, fatigue, congestion and ear pain for 1 week. Denies fevers, chest pain, difficulty breathing, rash, and vomiting. She has taken ibuprofen and tylenol for her symptoms. Review of Systems Constitutional: Positive for fatigue. Negative for chills and fever. HENT: Positive for congestion, ear pain and sore throat. Negative for postnasal drip, rhinorrhea and sinus pressure. Respiratory: Negative for cough, shortness of breath and wheezing. Cardiovascular: Negative for chest pain. Gastrointestinal: Negative for nausea. Musculoskeletal: Negative for myalgias. Neurological: Negative for headaches. Vitals: 06/07/24 0829 BP: 126/88 Pulse: 75 Resp: 22 Temp: 36.6 ??C (97.8 ??F) TempSrc: Oral SpO2: 99% Weight: 56.7 kg (125 lb) Height: 156.2 cm (5' 1.5 ) Recent Results (from the past 24 hour(s)) POCT rapid strep A Collection Time: 06/07/24 8:43 AM Result Value Ref Range Rapid Strep A, POC Negative Negative Physical Exam Vitals reviewed. Constitutional: General: She is not in acute distress. Appearance: Normal appearance. She is not ill-appearing. HENT: Head: Normocephalic. Right Ear: Tympanic membrane, ear canal and external ear normal. No middle ear effusion. Tympanic membrane is not erythematous or bulging. Left Ear: Tympanic membrane, ear canal and external ear normal. No middle ear effusion. Tympanic membrane is not erythematous or bulging. Nose: No congestion or rhinorrhea. Mouth/Throat: Lips: Warren. Mouth: Mucous membranes are moist. Pharynx: Uvula midline. No pharyngeal swelling, oropharyngeal exudate or posterior oropharyngeal erythema. Tonsils: 1+ on the right. 1+ on the left. Cardiovascular: Rate and Rhythm: Normal rate and regular rhythm. Pulmonary: Effort: Pulmonary effort is normal. No respiratory distress. Breath sounds: Normal breath sounds. No decreased breath sounds or wheezing. Lymphadenopathy: Cervical: No cervical adenopathy. Right cervical: No superficial cervical adenopathy. Left cervical: No superficial cervical adenopathy. Skin: General: Skin is warm. Neurological: Mental Status: She is oriented to person, place, and time. Psychiatric: Behavior: Behavior is cooperative. Diagnoses and all orders for this visit: Nasopharyngitis acute (Primary) - POCT rapid strep A Orders Placed This Encounter Procedures POCT rapid strep A Assessment/Plan # acute nasopharyngitis --Throat culture sent --recommended salt water gargles --antihistamine as needed for congestion, use as directed --Warm tea with honey and lemon --tylenol/motrin for pain/fever, use as directed. --diet as tolerated --ED presentation with one or more of the following symptoms: fever uncontrolled with antipyretics,shortness of breath, chest discomfort, uncontrolled n/v/d --f/u with PCP if symptoms persist Disposition Treatment plan including expectations, follow up, and return precautions discussed with patient/parent, verbalizes understanding. Medication dosage, use, and potential adverse reactions discussed with patient/parent. Advised to follow up with PCP if symptoms do not resolve as expected or sooner if condition worsens. Discussed Signs/symptoms warranting ER evaluation including worsening fever, increased shortness ofbreath, chest pain, severe N/V/D, or any other worrisome symptoms Patient and/or guardian was given an opportunity to ask questions, questions answered. Patient Education The rapid strep test performed at the [facility] today was NEGATIVE. Throat culture sent Take Tylenol (acetaminophen) or Advil/Motin (ibuprofen) as needed per package directions for fevers/pain. Gargle with warm salt water (1tsp salt/1 cup water) or warm tea with honey and lemon to soothe pain Frequent warm or cool liquids can be soothing, like ice chips, popsicles, chicken broth, and tea. If you still are not having relief with the above, you can try a Magic Mouthwash -Equal parts liquid antacid (e.g.Maalox) and children's Benadryl with a couple drops of Anbesol gargle and spit every 3-4 hours as needed. If you are not improving or worsening in the next 3-5 days you must RETURN to the clinic, go to your PCP, or Urgent Care/ER to be SEEN and reevaluated. Shantell Bonner NP This office note has been partially dictated using [employer] software, and as a result portions of the record may have been created with this software. Occasional wrong-word or '[id number]' substitutions may have occurred due to the inherent limitations of voice recognition software. Read the chartcarefully and recognize, using context, where substitutions have occurred. documented in this encounter Miscellaneous Notes * Addendum Note - Stephanie Moreno MA - 06/07/2024 8:30 AM CDTAddended by: STEPHANIE MORENO on: 06/07/2024 08:55 AM Modules accepted: Orders documented in this encounter Plan of Treatment Not on file documented as of this encounter Procedures Procedure Name Priority Date/Time Associated Diagnosis Comments POCT RAPID STREP Routine 06/07/2024 8:43 AM CDT Nasopharyngitis acute documented in this encounter Results * Throat culture Throat (06/07/2024 8:55 AM CDT) Report Final Report: No growth of pathogens. Comment:Testing performed by : [facility], [address] [place]., [address] Throat 06/07/2024 8:55 AM CDT 06/07/2024 6:33 PM CDT Narrative JOCELINE Hernandez 06/08/2024 2:24 PM CDT Testing performed by [facility] ([phone]). Shantell Bonner NP LAB MICROBIOLOGY - GENERAL ORD ERABLES Final Result [facility] [address] Department [place] [address] * POCT rapid strep A (06/07/2024 8:43 AM CDT) Rapid Strep A, POC Negative Negative Swab 06/07/2024 8:43 AM CDT Shantell Bonner NP POINT OF CARE TEST ORDERABLES Final Result documented in this encounter Visit Diagnoses Diagnosis Nasopharyngitis acute- Primary Acute nasopharyngitis (common cold) Nasopharyngitis acute Acute nasopharyngitis (common cold) documented in this encounter Care Teams Wireless Manager Relationship Specialty Start Date End Date Demar Ceballos MD PCP - General Internal Medicine 08/03/23 Demar Ceballos MD Internal Medicine 08/03/23 documented as of this encounter
--- OUTSIDE RECORDS SUMMARY | 2024-10-21 16:28 | XMS_ITS | Encounter Summary ---
Author Organization [facility] Healthcare Address [address] [place] [address] Care Team Providers Care Dirt Contractor Name Role Phone Chase Blanchard Primary Care Provider Unavailabl e Encounter Details Date Type Department Care Team (Late st Contact Info) Description 12/15/2013 2:38 PM CONCRETE SWIMMING POOL INSTALLER - 12/15/2013 4:15 PM CONCRETE SWIMMING POOL INSTALLER Hospital Encounter [facility] Finn Nettles MD [address] [place] [address] Other chest pain; Hyperventilation; Anxiety state; Asthma Social History Tobacco Use Types Packs/Day Years Used Date Smoking Tobacco: Never Assessed Alcohol Use Standard Drinks/Week Comments Yes 0 (1 standard drink = 0.6 oz pur e alcohol) Comments Unknown Sex and Gender Information Value Date Recorded Sex Assigned at Not on file Legal Sex Female 11:56 PM CONCRETE SWIMMING POOL INSTALLER Gender Identity Not on file Sexual Orientation Not on file documented as of this encounter Plan of Treatment Not on file documented as of this encounter Procedures Procedure Name Priority Date/Time Associated Diagnosis Comments SERUM LIPASE Routine 12/15/2013 3:15 PM CONCRETE SWIMMING POOL INSTALLER SERUM COMPREHENSIVE METABOLIC PANEL Routine 12/15/2013 3:15 PM CONCRETE SWIMMING POOL INSTALLER SERUM AMYLASE Routine 12/15/2013 3:15 PM CONCRETE SWIMMING POOL INSTALLER PLASMA TROPONIN I Routine 12/15/2013 3:1 5 PM CONCRETE SWIMMING POOL INSTALLER PLASMA PROTHROMBIN TIME (PT) Routine 12/15/2013 3:15 PM CONCRETE SWIMMING POOL INSTALLER PLASMA PARTIAL THROMBOPLASTIN TIME (PTT) Routine 12/15/2013 3:15 PM CONCRETE SWIMMING POOL INSTALLER BLOOD D-DIMER Routine 12/15/2013 3:15 PM CONCRETE SWIMMING POOL INSTALLER BLOOD CELL COUNT (CBC), MORPHOLOGIC EXAM Routine 12/15/2013 3:15 PM CONCRETE SWIMMING POOL INSTALLER BLOOD B-TYPE NATRIURETIC PEPTIDE (BNP) Routine 12/15/2013 3:15 PM CONCRETE SWIMMING POOL INSTALLER XR CHEST 1 VIEW Routine 12/15/2013 3:15 PM CONCRETE SWIMMING POOL INSTALLER BLOOD GLUCOSE, POC Routine 12/15/2013 2: 44 PM CONCRETE SWIMMING POOL INSTALLER ELECTROCARDIOGRAPHY (ECG) 12/15/2013 DISCHARGE LABORATORY CUMULATIVE REPORT 12/15/2013 documented in this encounter Results * Plasma prothrombin time (PT) (12/15/2013 3:15 PM CONCRETE SWIMMING POOL INSTALLER) Prothrombin time (PT) 12.7 11.5 - 15.5 seconds HISTORICAL RESULTS INR 0.96 0.81 - 1.21 HISTORIC AL RESULTS Plasma 12/15/2013 3:15 PM CONCRETE SWIMMING POOL INSTALLER Finn Nettles MD LAB BLOOD ORDERABLES Final Result Performing Organization Address [facility] Co de Phone Number HISTORICAL RESULTS * Plasma partial thromboplastin time (PTT) (12/15/2013 3:15 PM CONCRETE SWIMMING POOL INSTALLER) APTT 26.4 21.5 - 39.0 seconds HISTORICAL RESULTS Plasma 12/15/2013 3:15 PM CONCRETE SWIMMING POOL INSTALLER Finn Nettles MD LAB BLOOD ORDERABLES Final Result Performing Organization Address City/[facility]/ZIP Co de Phone Number HISTORICAL RESULTS * Blood D-dimer (12/15/2013 3:15 PM CONCRETE SWIMMING POOL INSTALLER) D-dimer <0.2 0.0 - 0.5 mcg/ml FEU HISTORICAL RESULTS Comment: The D-Dimer result should not be used as the sole indicator to rule in or exclude a diagnosis of Pulmonary Embolism or Deep Vein Thrombosis. Blood specimen (specimen) 12/15/2013 3:15 PM CONCRETE SWIMMING POOL INSTALLER Finn Nettles MD LAB BLOOD ORDERABLES Final Result HISTORICAL RESULTS * Blood cell count (CBC), morphologic exam (12/15/2013 3:15 PM CONCRETE SWIMMING POOL INSTALLER) WBC 6.8 5.0 - 10.0 K/cumm HISTORICAL RESULTS RBC 4.92 4.20 - 5.20 M/cumm HISTORICAL RESULTS Hgb 14.9 12.0 - 15.0 g/dl HISTORICAL RESULTS Hct 43.8 37.0 - 47.0 % HISTORICAL RESULTS MCV 89.0 82.0 - 96.0 fl HISTORICAL RESULTS MCH 30.3 27.0 - 32.0 pg HISTORICAL RESULTS MCHC 34.0 29.0 - 35.0 g/dl HISTORICAL RESULTS Platelets 284 150 - 450 K/cumm HISTORICAL RESULTS RDW 39.1 36.4 - 46.3 fl HISTORICAL RESULTS Rdw 12.2 11.5 - 14.5 % HISTORICAL RESULTS MPV 9.9 8.6 - 12.6 fl HISTORICAL RESULTS Neutrophils 65.4 42.0 - 85.0 % HISTORICAL RESULTS Neutrophils, abs 4.4 2.1 - 8.5 K/cumm HISTORICAL RESULTS Lymphocytes 25.8 16.0 - 52.0 % HISTORICAL RESULTS Lymphocytes, abs 1.8 0.8 - 5.2 K/cumm HISTORICAL RESULTS Monos 5.9 1.0 - 13.0 % HISTORICAL RESULTS Monocytes, absolute 0.4 0.0 - 1.3 K/cumm HISTORICAL RESULTS Eosinophils 2.5 0.0 - 7.0 % HISTORICAL RESULTS Eosinophils, abs 0.2 0.0 - 0.7 K/cumm HISTORICAL RESULTS Basophils 0.3 0.0 - 4.0 % HISTORICAL RESULTS Basophils, abs 0.0 0.0 - 0.4 K/cumm HISTORICAL RESULTS Young granulocytes, % 0.1 0.0 - 1.0 % HISTORICAL RESULTS Young granulocyte 0.01 0.00 - 0.10 K/cumm HISTORICAL RESULTS NRBC 0.0 0.0 - 0.2 #/100 WBC HISTORICAL RESULTS NRBC, abs 0.00 0.00 - 0.01 K/cumm HISTORICAL RESULTS Blood specimen (specimen) 12/15/2013 3:15 PM CONCRETE SWIMMING POOL INSTALLER us Finn Nettles MD LAB BLOOD ORDERABLES Final Result Performing Organization Address [facility] de Phone Number HISTORICAL RESULTS * Blood B-type natriuretic peptide (BNP) (12/15/2013 3:15 PM CONCRETE SWIMMING POOL INSTALLER) BNP 34 0 - 100 pg/ml HISTORICAL RESULTS Blood specimen (specimen) 12/15/2013 3:15 PM CONCRETE SWIMMING POOL INSTALLER Result Audrey Nettles MD LAB BLOOD ORDERABLES Final Result Performing Organization Address [facility] Phone Number HISTORICAL RESULTS * Plasma troponin I (12/15/2013 3:15 PM CONCRETE SWIMMING POOL INSTALLER) Troponin I <0.02 0.00 - 0.14 ng/ml HISTORICAL RESULTS Comment: Troponin Reference Ranges: Normal: ?0.00 - 0.14 ng/mL Indeterminate: ?0.15 - 0.50 ng/mL MA / Cardiac Muscle Damage: ?>0.50 ng/mL Plasma 12/15/2013 3:15 PM CONCRETE SWIMMING POOL INSTALLER Result Audrey Nettles MD LAB BLOOD ORDERABLES Final Result Performing Organization Address [facility] de Phone Number HISTORICAL RESULTS * Serum lipase (12/15/2013 3:15 PM CONCRETE SWIMMING POOL INSTALLER) Lip 26 20 - 50 Units/L HISTORICAL RESULTS Serum 12/15/2013 3:15 PM CONCRETE SWIMMING POOL INSTALLER us Finn Ntetles MD LAB BLOOD ORDERABLES Final Result HISTORICAL RESULTS * Serum amylase (12/15/2013 3:15 PM CONCRETE SWIMMING POOL INSTALLER) Sima, sr 28 28 - 100 Units/L HISTORICAL RESULTS Serum 12/15/2013 3:15 PM CONCRETE SWIMMING POOL INSTALLER Finn Nettles MD LAB BLOOD ORDERABLES Final Result HISTORICAL RESULTS * Serum comprehensive metabolic panel (12/15/2013 3:15 PM CONCRETE SWIMMING POOL INSTALLER) BUN 8 8 - 24 mg/dl HISTORICAL RESULTS Glucose 114 70 - 199 mg/dl HISTORICAL RESULTS Sodium 137 135 - 145 mmol/L HISTORICAL RESULTS Potassium, sr 3.8 3.5 - 5.1 mmol/L HISTORICAL RESULTS Chloride 100 100 - 114 mmol/L HISTORICAL RESULTS CO2 30 22 - 32 mmol/L HISTORICAL RESULTS Creatinine 0.63 0.60 - 1.30 mg/dl HISTORICAL RESULTS AST 22 7 - 40 Units/L HISTORICAL RESULTS ALT 35 1 - 45 Units/L HISTORICAL RESULTS Alk phos 42 30 - 110 Units/L HISTORICAL RESULTS Calcium 9.3 8.4 - 10.5 mg/dl HISTORICAL RESULTS Bilirubin 0.81 0.10 - 1.30 mg/dl HISTORICAL RESULTS Protein, sr 7.3 6.0 - 8.3 g/dl HISTORICAL RESULTS Alb 4.4 3.2 - 4.8 g/dl HISTORICAL RESULTS Globulin 2.9 2.0 - 4.3 g/dl HISTORICAL RESULTS A. gap 11 8 - 16 mmol/L HISTORICAL RESULTS eGFR >90 90 - 200 ml/min/1.7 3 m2 HISTORICAL RESULTS Comment: If this individual is -[place], multiply result by 1.21 Repeated results of less than 60 is indicative of chronic kidney disease. MDRD formula has not been validated on individuals greater than 70 years old. Serum 12/15/2013 3:15 PM CONCRETE SWIMMING POOL INSTALLER us Finn Nettles MD LAB BLOOD ORDERABLES Final Result HISTORICAL RESULTS * XR Chest 1 View (12/15/2013 3:15 PM CONCRETE SWIMMING POOL INSTALLER) Anatomical Region Laterality Modality Body, Chest N/A Radiographic Jaylin ging 12/15/2013 3:15 PM CONCRETE SWIMMING POOL INSTALLER Narrative 12/16/2013 9:20 AM CONCRETE SWIMMING POOL INSTALLER DATE OF EXAM: ??Dec 15 2013 ??3:15PM Acc#: ??[id number] ??EDX 0031 - XR Chest Portable ?? DIAGNOSIS: ??CHEST PAIN CLINICAL HISTORY: ? RESULT: \ CHEST: Portable AP view of the chest. Lungs clear. Cardiovascular structures unremarkable. IMPRESSION: ?\ NEGATIVE STUDY. SALES SUPPORT REP: ??LB3 TRANSCRIBE DATE/TIME: ??Dec 15 2013 ??6:24P RADIOLOGIST: ??GARRETT MARKS M.D. ??READ ON: ??Dec 15 2013 ??3:19P ORDERING DR: FINN NETTLES M.D. THIS DOCUMENT HAS BEEN ELECTRONICALLY SIGNED BY: ??GARRETT MARKS M.D. ??ON: ??Dec 16 2013 ??9:20A Procedure Note Provider, Marilu, - 02/28/2017 DATE OF EXAM: Dec 15 2013 3:15PM Acc#: [id number] EDX 0031 - XR Chest Portable DIAGNOSIS: CHEST PAIN CLINICAL HISTORY: RESULT: \ CHEST: Portable AP view of the chest. Lungs clear. Cardiovascular structures unremarkable. IMPRESSION: \ NEGATIVE STUDY. SALES SUPPORT REP: LB3 TRANSCRIBE DATE/TIME: Dec 15 2013 6:24P RADIOLOGIST: GARRETT MARKS M.D. READ ON: Dec 15 2013 3:19P ORDERING DR: FINN NETTLES M.D. THIS DOCUMENT HAS BEEN ELECTRONICALLY SIGNED BY: GARRETT MARKS M.D. ON: Dec 16 2013 9:20A us Historical Provider MD RUSHING XR PROCEDURES Final R esult * Blood glucose, POC (12/15/2013 2:44 PM CONCRETE SWIMMING POOL INSTALLER) Glucose, POC, bld 96 70 - 199 mg/dl HISTORICAL RESULTS Blood specimen (specimen) 12/15/2013 2:44 PM CONCRETE SWIMMING POOL INSTALLER Finn Nettles MD LAB BLOOD ORDERABLES Final Result HISTORICAL RESULTS * DISCHARGE LABORATORY CUMULATIVE REPORT (12/15/2013) Narrative 12/15/2013 Ordered by an unspecified provider. Historical Provider LAB BLOOD ORDERABLES Adela l Result * ELECTROCARDIOGRAPHY (ECG) (12/15/2013) Narrative 12/15/2013 Ordered by an unspecified provider. Historical Provider ECG ORDERABLES Final Res ult documented in this encounter Visit Diagnoses Diagnosis Other chest pain Hyperventilation Anxiety state Anxiety state, unspecified Asthma Unspecified asthma documented in this encounter Care Teams Dirt Contractor Relationship Specialty Start Date End Date Chase Blacnhard PCP - General 06/24/09 08/18/22 documented as of this encounter
--- OUTSIDE RECORDS SUMMARY | 2024-10-21 16:28 | XMS_ITS | Clinical Summary ---
Author Organization [facility] [address] [place] Address [address] [place] [id number] Care Team Providers Care Cattle Feeder Name Role Phone Demar Ceballos MD Primary Care Provider [phone] Demar Ceballos MD Unavailable Allergies No known active allergies Medications cyclobenzaprine [...] STD Asthma 03/21/2014 Overview (02/09/2017): ASTHMA NOS Surgical History Surgery Date Site/Laterality Comments CHOLECYSTECTOMY 2006 gallbladder removed Family History Medical History Relation Name Comments Colon cancer Father 2 Cancer -colon; Migraines Father 2 Migraines; Other Father 2 Alive and well; Other Mother 2 Alive and well; Relation Name Status Comments Father 1 Alive Father 2 Mother 1 Alive Mother 2 Social History Tobacco Use Types Packs/Day Years Used Date Smoking Tobacco: Never Smokeless Tobacco: Never Alcohol Use Standard Drinks/Week Comments Yes 0 (1 standard drink = 0.6 oz pur e alcohol) on occasion Comments Unknown Sex and Gender Information Value Date Recorded Sex Assigned at Not on file Legal Sex Female 11:56 PM 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 SECURITY 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 Gender Identity Not on file Sexual Orientation Not on file Obstetrics History Last Filed Vital Signs Vital Sign Reading [...] 06/07/2024 8:29 AM CDT Plan of Treatment Health Maintenance Due Date Last Done Comments Breast Cancer Screening-Mammogram 1981 Cervical Cancer Screening 1981 Depression Screening 1981 Hepatitis C Screening 1981 Pneumococcal vaccine <65 (1 of 2 - PCV) 1987 DTaP/Tdap/Td Vaccine (1 - Tdap) 1992 Varicella Vaccines (1 of 2 - 13+ 2-dose series) 1994 Hepatitis B Screening 1999 Regular Well Visit/Exam 18-64 1999 Influenza Vaccine (#1) 2024 HPV Vaccines Aged Out No longer eligi ble based on patient's age to complete this topic Insurance [employer] [place] [facility] [place] [employer] [facility] [place] Care Teams Cattle Feeder Relationship Specialty Start Date End Date Demar Ceballos MD PCP - General Internal Medicine 08/03/23 Demar Ceballos MD Internal Medicine 08/03/23
--- OUTSIDE RECORDS SUMMARY | 2024-10-21 16:29 | XMS_ITS ---
Author Organization [facility] Address [address] [facility] [address] [place], [place] [id number] Care Team Providers Care Plastics Worker Name Role Phone Chase Blanchard Primary Care Provider Casey Polanco Unavailable [phone] Migration, Provider Unavailable Unavailable REASON FOR VISIT Multum To Medispan Conversion Encounter Medications Medication SIG (Take, Route, Frequency, Duration) Notes Start Date End Date Status Albuterol Sulfate *Please review and pick correct strength-formulation from Medispan options. If intended option is not shown, discontinue and re-order from Quick Search* Active CEDAX 400 MG 1 CAP(S) ORALLY ONCE A DAY for 14 DAY(S) *Please review for potential replacement for e-prescription and drug interaction check* 11/22/2011 Active Encounters Encounter Location Date Provider Diagnosis [facility] Pl[facility] Surgery [facility] [address] [facility] [address] [place], [place] [phone] 10/18/2024 Provider Migration Lymphadenopathy NOS 785.6 Assessments Encounter Date Diagnosis (ICD Code) Assessment Notes Treatment Notes Treatment Clinical Notes Section Notes 10/18/2024 Lymphadenopathy NOS (ICD9-CM - 785.6) Plan Of Treatment Medication Medication Name Sig Start Date Stop Date Notes CEDAX 400 MG 1 CAP(S) ORALLY ONCE A DAY for 14 DAY(S) 11/22/2011 *Please review for potential replacement for e-prescription and drug interaction check* Progress Notes * Nydia DA SILVA LDOB:1980 (44 yo F)Acc No.[id number]:10/18/2024 Patient:?Mikey DA SILVAn Richard Provider:?Provider Migration :1980???Age:44 Y???Sex:Female D ate:10/18/2024 Address:[address] [place], [place] [phone] Pcp:Chase Blanchard Subjective: * Chief Complaints: * ???1. Multum To Medispan Con version Encounter. * Medical History:? * Medications:?Taking Albutero l Sulfate , Notes to Pharmacist: *Please review and pick correct strength-formulation from Medispan options. If intended option is not shown, discontinue and re-order from Quick Search* Objective: * Vitals:? * Physical Examination:? Assessment: * Assessment: 1.?Lymphadenopathy NOS - 785 .6 (Primary)??? Plan: * Treatment: * * Electronic signature of Prov ider Migration on 10/21/2024 at 04:29 PM GRIDCAP MACHINE OPERATOR Sign off status: Pending * Provider:?Provider Migration Date:?10/18 Generated for Preston sierra/Keyur/Chansmitting on:?10/21/2024 04:29 PM GRIDCAP MACHINE OPERATOR
--- OUTSIDE RECORDS SUMMARY | 2024-10-21 16:29 | XMS_ITS | Patient Health Record ---
Author Organization [facility] Address [address] [place] [address] [place], [place] [phone] Care Team Providers Care Coal Hauler Operator Name Role Phone Chase Blanchard Primary Care Provider Casey Polanco Unavailable [phone] Migration, Provider Unavailable Unavailable Reason For Referral No Information Medications Medication SIG (Take, Route, Frequency, Duration) Notes Start Date End Date Status Albuterol Sulfate *Please review and pick correct strength-formulation from [employer] options. If intended option is not shown, discontinue and re-order from Quick Search* Active CEDAX 400 MG 1 CAP(S) ORALLY ONCE A DAY for 14 DAY(S) *Please review for potential replacement for e-prescription and drug interaction check* 11/22/2011 Active Problems Problem Type SNOMED Code ICD Code Onset Dates Problem Status W/U Status Risk Notes Problem Mass in head or neck (718384163) Swelling, mass, or lump in head and neck (784.2) Active confirmed Problem Lymphadenopathy (84810666) Lymphadenopathy NOS (785.6) Active confirmed Encounters Encounter Location Date Provider Diagnosis [facility] [address] [place] [address] [place], [place] [phone] 10/18/2024 Provider Migration Lymphadenopathy NOS 785.6 Assessments Encounter Date Diagnosis (ICD Code) Assessment Notes Treatment Notes Treatment Clinical Notes Section Notes 10/18/2024 Lymphadenopathy NOS (ICD9-CM - 785.6) Plan Of Treatment No Information Insurance Providers Payer Name Payer Address Payer Phone Subscriber Number Group Number Insured Name Patient Relationship to Insured Coverage Start Date Coverage End Date Rosalie [facility] [address] [address] [place] [address] [id number] Nydia Da Silva Self - patient is the insured Medical (General) History Medical History History ICD Code Pertinent Medical History: Asthma, Migra ine headaches Surgical History Surgery Date(Month/Year) Gallbladder removed 2004
--- OUTSIDE RECORDS SUMMARY | 2024-10-21 17:42 | XMS_ITS | Encounter Summary ---
Author Organization [facility] Healthcare Address [address] [place] [address] Care Team Providers Care Scrap Crusher Name Role Phone Deamr Ceballos MD Primary Care Provider [phone] Demar Ceballos MD Unavailable Reason for Visit * Reason Comments Sore Throat Ear pain, right side is way worse x 1 week Encounter Details Date Type Department Care Team (Latest Contact Info) Description 06/07/2024 8:30 AM CDT Office Visit [facility] Medical Group Convenient Care at [address] [phone] Shantell Bonner NP [address] [place] [address] Nasopharyngitis acute (Primary Dx) Social History Tobacco Use Types Packs/Day Years Used Date Smoking Tobacco: Never Smokeless Tobacco: Never Alcohol Use Standard Drinks/Week Comments Yes 0 (1 standard drink = 0.6 oz pur e alcohol) on occasion Comments Unknown Sex and Gender Information Value Date Recorded Sex Assigned at Not on file Legal Sex Female 11:56 PM TERMINAL CLERK Gender Identity Not on file Sexual Orientation [...] The rapid strep test performed at the [facility] today was NEGATIVE. Throat culture sent Take [...] be sent through Care Everywhere. * Pharyngitis (Final Block Press Operator) (E[place]ian) documented in this encounter Progress Notes * [...] Nose: No congestion or rhinorrhea. Mouth/Throat: Lips: [place]. Mouth: Mucous membranes are moist. Pharynx: Uvula [...] The rapid strep test performed at the [facility] Care today was NEGATIVE. Throat culture sent [...] office note has been partially dictated using Netac software, and as a result portions of the record may have been created with this software. Occasional wrong-word or '[id number]' substitutions may have occurred due to the [...] growth of pathogens. Comment:Testing performed by : [facility], [address] [place]., [address] Throat 06/07/2024 8:55 AM CDT 06/07/2024 6:33 PM CDT Narrative JOCELINE Hernandez 06/08/2024 2:24 PM CDT Testing performed by [facility] Microbiology Laboratory ([phone]). Shantell Bonner NP LAB MICROBIOLOGY - GENERAL ORD ERABLES Final Result [facility] [address] [address] Department [place] [address] * POCT rapid strep A (06/07/2024 8:43 AM CDT) Rapid Strep A, POC Negative Negative Swab 06/07/2024 8:43 AM CDT Shantell Bonner NP POINT OF CARE TEST ORDERABLES Final Result documented in this encounter Visit Diagnoses Diagnosis Nasopharyngitis acute- Primary Acute nasopharyngitis (common cold) Nasopharyngitis acute Acute nasopharyngitis (common cold) documented in this encounter Care Teams Scrap Crusher Relationship Specialty Start Date End Date Demar Ceballos MD PCP - General Internal Medicine 08/03/23 Demar Ceballos MD Internal Medicine 08/03/23 documented as of this encounter
--- OUTSIDE RECORDS SUMMARY | 2024-10-21 17:42 | XMS_ITS | Encounter Summary ---
Author Organization [facility] Healthcare Address [address] [place] [address] Care Team Providers Care Sueding Machine Operator Name Role Phone Demar Ceabllos MD Primary Care Provider [phone] Demar Ceballos MD Unavailable [phone] Reason for Visit * Reason Comments Toe [...] st Contact Info) Description 09/18/2023 3:00 PM COMMUNITY COORDINATOR Office Visit [facility] Medical Group Convenient Care at [address] [phone] Shantell Bonner, RUBBER GOODS ASSEMBLER [address] [place] [address] Ingrown nail of fifth toe of [...] on file Legal Sex Female 11:56 PM COMMUNITY COORDINATOR Gender Identity Not on file Sexual Orientation Not on file documented as of this encounter Last Filed Vital Signs Vital Sign Reading Time Taken Comments Blood Pressure 124/78 09/18/2023 2:36 PM COMMUNITY COORDINATOR Pulse 71 09/18/2023 2:36 PM COMMUNITY COORDINATOR Temperature 36.9 ??C (98.5 ??F) 09/18/2023 2:36 PM CS T Respiratory Rate 16 09/18/2023 2:36 PM COMMUNITY COORDINATOR Oxygen Saturation 98% 09/18/2023 2:36 PM COMMUNITY COORDINATOR Inhaled Oxygen Concentration - - Weight 62.6 kg (138 lb) 09/18/2023 2:36 PM COMMUNITY COORDINATOR Height 154.9 cm (5' 1 ) 09/18/2023 2:36 PM COMMUNITY COORDINATOR Body Mass Index 26.07 09/18/2023 2:36 PM COMMUNITY COORDINATOR documented in this encounter Patient Instructions * Patient Instructions* Shantell Bonner NP - 09/18/2023 3:00 PM COMMUNITY COORDINATOR --treatment with topical and oral antibiotics --warm water or antiseptic soaks multiple times per day is usually effective. --Apply triple antibiotic ointment after each warm soak. Warm soaks should last 10 to 15 minutes If symptoms persist greater than 7-10 days or worsen at any time, follow up with your primary health care provider, clinic or emergency care UNITY COORDINATOR * Attachments The following attachments cannot be sent through Care Everywhere. * Ingrown Nail (Senior Fund Accountant) ([place]) documented in this encounter Ordered Prescriptions Prescription [...] not ill-appearing. HENT: Head: Normocephalic. Mouth/Throat: Lips: [place]. Cardiovascular: Rate and Rhythm: Normal rate. Pulmonary: [...] provider, clinic or emergency care Ingrown Nail ETCHER APPRENTICE: An ingrown nail is when the edge [...] directed: You may be referred to a bag machine operator helper. Write down your questions so you remember to ask them during your visits. ?? Copyright [employer] 2021 Information is for End User's use only and may not be sold, redistributed or otherwise used for commercial purposes. All illustrations and images included in CareNotes?? are the copyrighted property of [employer]. or [employer] The above information is an room maid only. It is not intended as medical [...] Javier Mcmanus MD at 09/18/2023 3:10 PM COMMUNITY COORDINATOR UNITY COORDINATOR UNITY COORDINATOR documented in this encounter Plan of Treatment Not on file documented as of this encounter Visit Diagnoses Diagnosis Ingrown nail of fifth toe of right foot- Primary Paronychia of fifth toe of right foot documented in this encounter Care Teams Sueding Machine Operator Relationship Specialty Start Date End Date Demar Ceballos MD PCP - General Internal Medicine 08/03/23 Demar Ceballos MD Internal Medicine 08/03/23 documented as of this encounter
--- OUTSIDE RECORDS SUMMARY | 2024-10-21 17:42 | XMS_ITS | Encounter Summary ---
Author Organization [facility] Address [address] [place] [address] Care Team Providers Care Mechanical Meter Tester Name Role Phone Dennis Brito MD Primary Care Provider Marcelina vailable Encounter Details Date Type Department Care Team (Late st Contact Info) Description 10/20/2020 Lab Requisition [facility] Mobile Testing [address] [phone] [place] [address] [place] [address] Social History Tobacco Use Types Packs/Day Years [...] PCR [facility] ONLY Routine 10/20/2020 1:16 PM CERAMICS ARTIST documented in this encounter Visit Diagnoses Not on filedocumented in this encounter Care Teams Mechanical Meter Tester Relationship Specialty Start Date End Date Dennis Brito MD PCP - General Internal Medicine 10/14/15 04/20/21 documented as of this encounter
--- OUTSIDE RECORDS SUMMARY | 2024-10-21 17:42 | XMS_ITS | Clinical Summary ---
Author Organization [facility] [address] Address [address] [place] [address] Care Team Providers Care Stage Builder Name Role Phone Demar Ceballos MD Primary Care Provider [phone] Demar Ceballos MD Unavailable [phone] Allergies No known active allergies Medications cyclobenzaprine [...] on file Legal Sex Female 11:56 PM UPHOLSTERY TECHNICIAN Gender Identity Not on file Sexual Orientation [...] this topic Insurance [facility] [facility] [place] [facility] [place] [facility] [place] Care Teams Stage Builder Relationship Specialty Start Date End Date Demar Ceballos MD PCP - General Internal Medicine 08/03/23 Demar Ceballos MD Internal Medicine 08/03/23
--- OUTSIDE RECORDS SUMMARY | 2024-10-21 17:42 | XMS_ITS | Encounter Summary ---
Author Organization [facility] Medical Group Address [address] [facility] [address] [place] [address] Care Team Providers Care Rug Underlay Machine Operator Name Role Phone Demar Ceballos MD Primary Care Provider [phone] Demar Ceballos MD Unavailable [phone] Reason for Visit * Reason Comments Insect [...] Description 08/03/2023 2:30 PM CDT Office Visit [facility] Outpatient Center [address] [address] Shantell Bonner NP [address] [place] [address] [address] [place] [address] Herpes zoster without complication (Primary Dx) Social History Tobacco Use Types Packs/Day Years Used Date Smoking Tobacco: Never Smokeless Tobacco: Never Alcohol Use Standard Drinks/Week Comments Yes 0 (1 standard drink = 0.6 oz pur e alcohol) on occasion Comments Unknown Sex and Gender Information Value Date Recorded Sex Assigned at Not on file Legal Sex Female 11:56 PM CONTOUR STITCHER Gender Identity Not on file Sexual Orientation [...] encounter Patient Instructions * Patient Instructions* Shantell Bonner, EDUCATION SITE MANAGER - 08/03/2023 2:30 PM CDT Shingles: Is [...] is near your eyes, follow up with battery tester and repairer as soon as possible) -Ear problems (if rash is near your ears) -Dangerous infections in people who have other health problems -You can take over the counter pain medication such as tylenol and / or ibuprofen (per package directions) as needed. * Attachments The following attachments cannot be sent through Care Everywhere. * Shingles (Athletic Field Custodian) (Citizen [place]) documented in this encounter Ordered Prescriptions Prescription [...] not ill-appearing. HENT: Head: Normocephalic. Mouth/Throat: Lips: [place]. Cardiovascular: Rate and Rhythm: Normal rate. Pulmonary: [...] is near your eyes, follow up with battery tester and repairer as soon as possible) -Ear problems (if [...] 05/30/2023 added in this encounter Care Teams Rug Underlay Machine Operator Relationship Specialty Start Date End Date Demar Ceballos MD PCP - General Internal Medicine 08/03/23 Demar Ceballos MD Internal Medicine 08/03/23 documented as of this encounter
--- OUTSIDE RECORDS SUMMARY | 2024-10-21 17:42 | XMS_ITS | Encounter Summary ---
Author Organization [facility] Address [address] [place] [address] Care Team Providers Care Rack Puller Name Role Phone Dennis Brito MD Primary Care Provider Marcelina vailable Encounter Details Date Type Department Care Team (Late st Contact Info) Description 10/20/2020 1:00 PM TAR BOILER Rapid Evaluation [facility] Mobile Testing [address] [place] [address] Social History Tobacco Use Types Packs/Day Years [...] on filedocumented in this encounter Care Teams Rack Puller Relationship Specialty Start Date End Date Dennis Brito MD PCP - General Internal Medicine 10/14/15 04/20/21 documented as of this encounter
--- OUTSIDE RECORDS SUMMARY | 2024-10-21 17:42 | XMS_ITS | Encounter Summary ---
Author Organization [facility] Healthcare Address [address] [place] [address] Care Team Providers Care Manager Mall Name Role Phone Demar Ceballos MD Primary Care Provider [phone] Demar Ceballos MD Unavailable [phone] Encounter Details Date Type Department Care Team (Late st Contact Info) Description 06/09/2024 Telephone [facility] Medical Group Convenient Care at [address] [phone] Shantell Bonner NP [address] [facility] [address] [place], [place] [phone] Social History Tobacco Use Types Packs/Day Years Used Date Smoking Tobacco: Never Smokeless Tobacco: Never Alcohol Use Standard Drinks/Week Comments Yes 0 (1 standard drink = 0.6 oz pur e alcohol) on occasion Comments Unknown Sex and Gender Information Value Date Recorded Sex Assigned at Not on file Legal Sex Female 11:56 PM CHEMICAL HANDLER Gender Identity Not on file Sexual Orientation [...] on filedocumented in this encounter Care Teams Manager Mall Relationship Specialty Start Date End Date Demar Ceballos MD PCP - General Internal Medicine 08/03/23 Demar Ceballos MD Internal Medicine 08/03/23 documented as of this encounter
--- OUTSIDE RECORDS SUMMARY | 2024-10-21 17:42 | XMS_ITS | Clinical Summary ---
Author Organization [facility] Address [address], [facility] [address] [place] [address] Phone Care Team Providers Care Bistro Attendant Name Role Phone Provider, None Primary Care [...] Comments Blood Pressure 102/62 10/18/2015 1:41 PM TOOL AND DIE INSPECTOR Pulse 71 10/18/2015 1:41 PM TOOL AND DIE INSPECTOR Temperature 36.3 ??C (97.3 ??F) 10/18/2015 1:41 PM CS T Respiratory Rate 16 10/18/2015 1:41 PM TOOL AND DIE INSPECTOR Oxygen Saturation 98% 10/18/2015 1:41 PM TOOL AND DIE INSPECTOR Inhaled Oxygen Concentration - - Weight 54.1 kg (119 lb 3.2 oz) 10/18/2015 1:41 P M TOOL AND DIE INSPECTOR Height 154.9 cm (5' 1 ) 10/18/2015 1:41 PM TOOL AND DIE INSPECTOR Body Mass Index 22.52 10/18/2015 1:41 PM TOOL AND DIE INSPECTOR Plan of Treatment Health Maintenance Due Date [...] age to complete this topic Care Teams Bistro Attendant Relationship Specialty Start Date End Date Provider, None [place] PCP - General 04/21/21
--- OUTSIDE RECORDS SUMMARY | 2024-10-21 17:42 | XMS_ITS | Encounter Summary ---
Author Organization [facility] Healthcare Address [address] [place] [address] Care Team Providers Care Refractory Furnace Designer Name Role Phone Demar Ceballos MD Primary Care Provider [phone] Demar Ceballos MD Unavailable [phone] Encounter Details Date Type Department Care Team (Latest Contact Info) Description 06/07/2024 8:55 AM CDT - 06/07/2024 11:59 PM CDT Hospital Encounter [address] [address] Nasopharyngitis acute Discharge Disposition: Discharge to home or self care Social History Tobacco Use Types Packs/Day Years Used Date Smoking Tobacco: Never Smokeless Tobacco: Never Alcohol Use Standard Drinks/Week Comments Yes 0 (1 standard drink = 0.6 oz pur e alcohol) on occasion Comments Unknown Sex and Gender Information Value Date Recorded Sex Assigned at Not on file Legal Sex Female 11:56 PM SKIVER WELT END Gender Identity Not on file Sexual Orientation [...] growth of pathogens. Comment:Testing performed by : [facility], [address] [place]., [address] Throat 06/07/2024 8:55 AM CDT 06/07/2024 6:33 PM CDT Narrative JOCELINE JIMENEZ - 06/08/2024 2:24 PM CDT Testing performed by [facility] Microbiology Laboratory ([phone]). us Shantell Bonner NP LAB MICROBIOLOGY - GENERAL ORD ERABLES Final Result JOCELINE JIMENEZ [address] [address] Department [place] [address] documented in this encounter Visit Diagnoses Diagnosis Nasopharyngitis acute Acute nasopharyngitis (common cold) documented in this encounter Care Teams Refractory Furnace Designer Relationship Specialty Start Date End Date Demar Ceballos MD PCP - General Internal Medicine 08/03/23 Demar Ceballos MD Internal Medicine 08/03/23 documented as of this encounter
--- OUTSIDE RECORDS SUMMARY | 2024-10-21 17:42 | XMS_ITS | Referral Summary ---
Author Organization [facility] [address] Address [address] [place] [address] Care Team Providers Care School Business Administrator Name Role Phone Demar Ceballos MD Primary Care Provider [phone] Demar Ceballos MD Unavailable [phone] Allergies No known active allergies Medications cyclobenzaprine [...] on file Legal Sex Female 11:56 PM VENDOR MANAGEMENT ASSOCIATE Gender Identity Not on file Sexual Orientation [...] Plan of Treatment Not on file Insurance [facility] [place] [facility] [place] [facility] Care Teams School Business Administrator Relationship Specialty Start Date End Date Demar Ceballos MD PCP - General Internal Medicine 08/03/23 Demar Ceballos MD Internal Medicine 08/03/23
--- OUTSIDE RECORDS SUMMARY | 2024-10-21 17:43 | XMS_ITS | Encounter Summary ---
Author Organization [facility] Healthcare Address [address] [place] [address] Care Team Providers Care Carding Machine Operator Name Role Phone Chase Blanchard Primary Care Provider Unavailabl e Encounter Details Date Type Department Care Team (Late st Contact Info) Description 11/09/2011 7:00 AM JEWEL BEARING POLISHER - 11/09/2011 11:59 PM JEWEL BEARING POLISHER Hospital Encounter [facility] Chase Blanchard Enlarged lymph nodes Social History Tobacco Use Types Packs/Day Years Used Date Smoking Tobacco: Never Assessed Alcohol Use Standard Drinks/Week Comments Yes 0 (1 standard drink = 0.6 oz pur e alcohol) Comments Unknown Sex and Gender Information Value Date Recorded Sex Assigned at Not on file Legal Sex Female 11:56 PM JEWEL BEARING POLISHER Gender Identity Not on file Sexual Orientation Not on file documented as of this encounter Plan of Treatment Not on file documented as of this encounter Visit Diagnoses Diagnosis Enlarged lymph nodes Enlargement of lymph nodes documented in this encounter Care Teams Carding Machine Operator Relationship Specialty Start Date End Date Chase Blanchard PCP - General 06/24/09 08/18/22 documented as of this encounter
--- OUTSIDE RECORDS SUMMARY | 2024-10-21 17:43 | XMS_ITS | Encounter Summary ---
Author Organization [facility] Healthcare Address [address] [place] [address] Care Team Providers Care Moisture Meter Reader Name Role Phone Chase Blanchard Primary Care Provider Unavailabl e Encounter Details Date Type Department Care Team (Latest Contact Info) Description 11/20/2017 3:47 PM SERVICE AGENT - 11/20/2017 11:59 PM SERVICE AGENT Hospital Encounter [facility] [address] [place], [place] [phone] Discharge Disposition: Discharge to home or self care Social History Tobacco Use Types Packs/Day Years Used Date Smoking Tobacco: Never Smokeless Tobacco: Never Alcohol Use Standard Drinks/Week Comments Yes 0 (1 standard drink = 0.6 oz pur e alcohol) on occasion Comments Unknown Sex and Gender Information Value Date Recorded Sex Assigned at Not on file Legal Sex Female 11:56 PM SERVICE AGENT Gender Identity Not on file Sexual Orientation [...] LATERAL 2 VIEWS ED 11/20/2017 3:59 PM SERVICE AGENT documented in this encounter Results * XR Chest Pa Lateral 2 Vw (11/20/2017 3:59 PM SERVICE AGENT) Anatomical Region Laterality Modality Body, Chest N/A Computed Radiogr aphy Impressions 11/20/2017 4:04 PM SERVICE AGENT No Acute Cardiopulmonary Abnormality. Electronically signed by: Kal Castaneda M.D. Narrative 11/20/2017 4:04 PM SERVICE AGENT RESULT: EXAMINATION: PA AND LATERAL CHEST RADIOGRAPHS [...] signed by: Kal Castaneda M.D. Stephanie Vargas FIRE LOSS PREVENTION ENGINEER IMG XR PROCEDURES Fi nal Result documented in this encounter Visit Diagnoses Not on filedocumented in this encounter Care Teams Moisture Meter Reader Relationship Specialty Start Date End Date Chase Blanchard PCP - General 06/24/09 08/18/22 documented as of this encounter
--- OUTSIDE RECORDS SUMMARY | 2024-10-21 17:43 | XMS_ITS | Encounter Summary ---
Author Organization [facility] Healthcare Address [address] [place] [address] Care Team Providers Care Audiology Technician Name Role Phone Chase Blanchard Primary Care Provider Unavailabl e Encounter Details Date Type Department Care Team (Late st Contact Info) Description 12/15/2013 2:38 PM BUSINESS INTEGRATION ANALYST - 12/15/2013 4:15 PM BUSINESS INTEGRATION ANALYST Hospital Encounter [facility] Finn Nettles MD [address] [place] [address] Other chest pain; Hyperventilation; Anxiety state; Asthma Social History Tobacco Use Types Packs/Day Years Used Date Smoking Tobacco: Never Assessed Alcohol Use Standard Drinks/Week Comments Yes 0 (1 standard drink = 0.6 oz pur e alcohol) Comments Unknown Sex and Gender Information Value Date Recorded Sex Assigned at Not on file Legal Sex Female 11:56 PM BUSINESS INTEGRATION ANALYST Gender Identity Not on file Sexual Orientation Not on file documented as of this encounter Plan of Treatment Not on file documented as of this encounter Procedures Procedure Name Priority Date/Time Associated Diagnosis Comments SERUM LIPASE Routine 12/15/2013 3:15 PM BUSINESS INTEGRATION ANALYST SERUM COMPREHENSIVE METABOLIC PANEL Routine 12/15/2013 3:15 PM BUSINESS INTEGRATION ANALYST SERUM AMYLASE Routine 12/15/2013 3:15 PM BUSINESS INTEGRATION ANALYST PLASMA TROPONIN I Routine 12/15/2013 3:1 5 PM BUSINESS INTEGRATION ANALYST PLASMA PROTHROMBIN TIME (PT) Routine 12/15/2013 3:15 PM BUSINESS INTEGRATION ANALYST PLASMA PARTIAL THROMBOPLASTIN TIME (PTT) Routine 12/15/2013 3:15 PM BUSINESS INTEGRATION ANALYST BLOOD D-DIMER Routine 12/15/2013 3:15 PM BUSINESS INTEGRATION ANALYST BLOOD CELL COUNT (CBC), MORPHOLOGIC EXAM Routine 12/15/2013 3:15 PM BUSINESS INTEGRATION ANALYST BLOOD B-TYPE NATRIURETIC PEPTIDE (BNP) Routine 12/15/2013 3:15 PM BUSINESS INTEGRATION ANALYST XR CHEST 1 VIEW Routine 12/15/2013 3:15 PM BUSINESS INTEGRATION ANALYST BLOOD GLUCOSE, POC Routine 12/15/2013 2: 44 PM BUSINESS INTEGRATION ANALYST ELECTROCARDIOGRAPHY (ECG) 12/15/2013 DISCHARGE LABORATORY CUMULATIVE REPORT 12/15/2013 documented in this encounter Results * Plasma prothrombin time (PT) (12/15/2013 3:15 PM BUSINESS INTEGRATION ANALYST) Prothrombin time (PT) 12.7 11.5 - 15.5 seconds HISTORICAL RESULTS INR 0.96 0.81 - 1.21 HISTORIC AL RESULTS Plasma 12/15/2013 3:15 PM BUSINESS INTEGRATION ANALYST Finn Nettles MD LAB BLOOD ORDERABLES Final Result Performing Organization Address [facility] Co de Phone Number HISTORICAL RESULTS * Plasma partial thromboplastin time (PTT) (12/15/2013 3:15 PM BUSINESS INTEGRATION ANALYST) APTT 26.4 21.5 - 39.0 seconds HISTORICAL RESULTS Plasma 12/15/2013 3:15 PM BUSINESS INTEGRATION ANALYST Finn Nettles MD LAB BLOOD ORDERABLES Final Result Performing Organization Address City/[facility]/ZIP Co de Phone Number HISTORICAL RESULTS * Blood D-dimer (12/15/2013 3:15 PM BUSINESS INTEGRATION ANALYST) D-dimer <0.2 0.0 - 0.5 mcg/ml FEU HISTORICAL RESULTS Comment: The D-Dimer result should not be used as the sole indicator to rule in or exclude a diagnosis of Pulmonary Embolism or Deep Vein Thrombosis. Blood specimen (specimen) 12/15/2013 3:15 PM BUSINESS INTEGRATION ANALYST Finn Nettles MD LAB BLOOD ORDERABLES Final Result HISTORICAL RESULTS * Blood cell count (CBC), morphologic exam (12/15/2013 3:15 PM BUSINESS INTEGRATION ANALYST) WBC 6.8 5.0 - 10.0 K/cumm HISTORICAL [...] RESULTS Blood specimen (specimen) 12/15/2013 3:15 PM BUSINESS INTEGRATION ANALYST us Finn Nettles MD LAB BLOOD ORDERABLES Final Result Performing Organization Address [facility] de Phone Number HISTORICAL RESULTS * Blood B-type natriuretic peptide (BNP) (12/15/2013 3:15 PM BUSINESS INTEGRATION ANALYST) BNP 34 0 - 100 pg/ml HISTORICAL RESULTS Blood specimen (specimen) 12/15/2013 3:15 PM BUSINESS INTEGRATION ANALYST Result Audrey Nettles MD LAB BLOOD ORDERABLES Final Result Performing Organization Address [facility] Phone Number HISTORICAL RESULTS * Plasma troponin I (12/15/2013 3:15 PM BUSINESS INTEGRATION ANALYST) Troponin I <0.02 0.00 - 0.14 ng/ml HISTORICAL RESULTS Comment: Troponin Reference Ranges: Normal: ?0.00 - 0.14 ng/mL Indeterminate: ?0.15 - 0.50 ng/mL VT / Cardiac Muscle Damage: ?>0.50 ng/mL Plasma 12/15/2013 3:15 PM BUSINESS INTEGRATION ANALYST Result Audrey Nettles MD LAB BLOOD ORDERABLES Final Result Performing Organization Address [facility] de Phone Number HISTORICAL RESULTS * Serum lipase (12/15/2013 3:15 PM BUSINESS INTEGRATION ANALYST) Lip 26 20 - 50 Units/L HISTORICAL RESULTS Serum 12/15/2013 3:15 PM BUSINESS INTEGRATION ANALYST us Finn Nettles MD LAB BLOOD ORDERABLES Final Result HISTORICAL RESULTS * Serum amylase (12/15/2013 3:15 PM BUSINESS INTEGRATION ANALYST) Sima, sr 28 28 - 100 Units/L HISTORICAL RESULTS Serum 12/15/2013 3:15 PM BUSINESS INTEGRATION ANALYST Finn Nettles MD LAB BLOOD ORDERABLES Final Result HISTORICAL RESULTS * Serum comprehensive metabolic panel (12/15/2013 3:15 PM BUSINESS INTEGRATION ANALYST) BUN 8 8 - 24 mg/dl HISTORICAL [...] HISTORICAL RESULTS Comment: If this individual is -Samoan, multiply result by 1.21 Repeated results of less than 60 is indicative of chronic kidney disease. MDRD formula has not been validated on individuals greater than 70 years old. Serum 12/15/2013 3:15 PM BUSINESS INTEGRATION ANALYST us Finn Nettles MD LAB BLOOD ORDERABLES Final Result HISTORICAL RESULTS * XR Chest 1 View (12/15/2013 3:15 PM BUSINESS INTEGRATION ANALYST) Anatomical Region Laterality Modality Body, Chest N/A Radiographic Jaylin ging 12/15/2013 3:15 PM BUSINESS INTEGRATION ANALYST Narrative 12/16/2013 9:20 AM BUSINESS INTEGRATION ANALYST DATE OF EXAM: ??Dec 15 2013 ??3:15PM Acc#: ??[id number] ??EDX [id number] - XR Chest Portable ?? DIAGNOSIS: ??CHEST PAIN CLINICAL HISTORY: ? RESULT: \ CHEST: Portable AP view of the chest. Lungs clear. Cardiovascular structures unremarkable. IMPRESSION: ?\ NEGATIVE STUDY. MANAGER PHP: ??LB3 TRANSCRIBE DATE/TIME: ??Dec 15 2013 ??6:24P RADIOLOGIST: ??GARRETT MARKS M.D. ??READ ON: ??Dec 15 2013 ??3:19P ORDERING DR: FINN NETTLES M.D. THIS DOCUMENT HAS BEEN ELECTRONICALLY SIGNED BY: ??GARRETT MARKS M.D. ??ON: ??Dec 16 2013 ??9:20A Procedure Note Provider, Marilu, - 02/28/2017 DATE OF EXAM: Dec 15 2013 3:15PM Acc#: [id number] EDX [id number] - XR Chest Portable DIAGNOSIS: CHEST PAIN CLINICAL HISTORY: RESULT: \ CHEST: Portable AP view of the chest. Lungs clear. Cardiovascular structures unremarkable. IMPRESSION: \ NEGATIVE STUDY. MANAGER PHP: LB3 TRANSCRIBE DATE/TIME: Dec 15 2013 6:24P RADIOLOGIST: GARRETT MARKS M.D. READ ON: Dec 15 2013 3:19P ORDERING DR: FINN NETTLES M.D. THIS DOCUMENT HAS BEEN ELECTRONICALLY SIGNED BY: GARRETT MARKS M.D. ON: Dec 16 2013 9:20A us Historical Provider MD RUSHING XR PROCEDURES Final R esult * Blood glucose, POC (12/15/2013 2:44 PM BUSINESS INTEGRATION ANALYST) Glucose, POC, bld 96 70 - 199 mg/dl HISTORICAL RESULTS Blood specimen (specimen) 12/15/2013 2:44 PM BUSINESS INTEGRATION ANALYST Finn Nettles MD LAB BLOOD ORDERABLES Final [...] asthma documented in this encounter Care Teams Audiology Technician Relationship Specialty Start Date End Date Chase Blanchard PCP - General 06/24/09 08/18/22 documented as of this encounter
--- OUTSIDE RECORDS SUMMARY | 2024-10-21 17:43 | XMS_ITS | Encounter Summary ---
Author Organization [facility] Healthcare Address [address] [place] [address] Care Team Providers Care Physician Assistant Certified Name Role Phone Chase Blanchard Primary Care Provider Unavailabl e Reason for Visit * Reason Comments Flank Pain Right sided Encounter Details Date Type Department Care Team (Late st Contact Info) Description 11/20/2017 3:08 PM MILL OPERATOR - 11/20/2017 4:48 PM MILL OPERATOR Emergency [facility] Emergency Department [address] [place] [address] Beverley Lay MD [address] [place] [address] [id number] [place] [address] Muscle spasm of back (Primary Dx) Discharge [...] on file Legal Sex Female 11:56 PM MILL OPERATOR Gender Identity Not on file Sexual Orientation Not on file documented as of this encounter Last Filed Vital Signs Vital Sign Reading Time Taken Comments Blood Pressure 143/99 11/20/2017 3:14 PM MILL OPERATOR Pulse 74 11/20/2017 3:14 PM MILL OPERATOR Temperature 37.2 ??C (98.9 ??F) 11/20/2017 3:14 PM CS T Respiratory Rate 18 11/20/2017 3:14 PM MILL OPERATOR Oxygen Saturation 99% 11/20/2017 3:14 PM MILL OPERATOR Inhaled Oxygen Concentration - - Weight 53.5 kg (118 lb) 11/20/2017 3:14 PM MILL OPERATOR Height 154.9 cm (5' 1 ) 11/20/2017 3:14 PM MILL OPERATOR Body Mass Index 22.3 11/20/2017 3:14 PM MILL OPERATOR documented in this encounter Discharge Instructions * Attachments The following attachments cannot be sent through Care Everywhere. * Back Spasm, No Trauma ([place]) documented in this encounter Medications at Time [...] Beverley Lay MD at 11/20/2017 9:06 PM MILL OPERATOR OPERATOR OPERATOR Associated attestation - Beverley Lay MD - 11/20/2017 9:06 PM MILL OPERATOR ED Attestation Based on the medical [...] STONE WO CONTRAST ED 11/20/2017 4:32 PM MILL OPERATOR XR CHEST PA LATERAL 2 VIEWS ED 11/20/2017 3:59 PM MILL OPERATOR URINALYSIS AND REFLEX TO MICROSCOPIC AND CULTURE STAT 11/20/2017 3:17 PM MILL OPERATOR URINALYSIS, MICROSCOPIC ONLY STAT 11/20/2017 3:17 PM MILL OPERATOR DISCHARGE LABORATORY CUMULATIVE REPORT 11/20/2017 12:00 AM MILL OPERATOR documented in this encounter Results * CT KUB Stone WO Contrast (11/20/2017 4:32 PM MILL OPERATOR) Anatomical Region Laterality Modality Abdomen N/A Computed Tomogra phy Impressions 11/20/2017 4:40 PM MILL OPERATOR NO HYDRONEPHROSIS OR NEPHROLITHIASIS. MARKEDLY DISTENDED URINARY BLADDER. NO ACUTE ABDOMINAL PELVIC PATHOLOGY OTHERWISE NOTED. Electronically signed by: Jen Pimentel M.D. Narrative 11/20/2017 4:40 PM MILL OPERATOR RESULT: Examination: ??CT KUB STONE WO [...] Pa Lateral 2 Vw (11/20/2017 3:59 PM MILL OPERATOR) Anatomical Region Laterality Modality Body, Chest N/A Computed Radiogr aphy Impressions 11/20/2017 4:04 PM MILL OPERATOR No Acute Cardiopulmonary Abnormality. Electronically signed by: Kal Castaneda M.D. Narrative 11/20/2017 4:04 PM MILL OPERATOR RESULT: EXAMINATION: PA AND LATERAL CHEST [...] signed by: Kal Castaneda M.D. Stephanie Vargas SERVICE CASHIER IMG XR PROCEDURES Fi nal Result * (ABNORMAL) Urinalysis, microscopic only (11/20/2017 3:17 PM MILL OPERATOR) RBC, ur 0 0 - 3 /HPF [facility] WBC, ur <1 0 - 5 /HPF [facility] Bacteria, ur Trace [facility] Epithelial cells, renal, ur 0 0 - 0 /HPF [facility] Epithelial cells, squamous, ur 1 /LPF [facility] Hyaline casts, ur 1(H) 0 - 0 /LPF [facility] Urine 11/20/2017 3:17 PM MILL OPERATOR 11/20/2017 3:25 PM MILL OPERATOR Narrative [facility] - 11/20/2017 4:13 PM MILL OPERATOR Brooks Noriega MD LAB URINE ORDER[place] [id number] [address] [place] [address] * (ABNORMAL) Urinalysis reflex to microscopic and culture (11/20/2017 3:17 PM MILL OPERATOR) Color, ur Straw [facility] Clarity, [...] Negative [facility] Urine 11/20/2017 3:17 PM MILL OPERATOR 11/20/2017 3:25 PM MILL OPERATOR Narrative [facility] - 11/20/2017 3:53 PM MILL OPERATOR Beverley Lay MD LAB MICROBIOLOGY - GENERAL MARIBEL KOKOELENO Final Result JOCELINE JIMENEZ [address] Department [place] [address] * DISCHARGE LABORATORY CUMULATIVE REPORT (11/20/2017 12:00 AM MILL OPERATOR) Narrative 11/20/2017 12:00 AM MILL OPERATOR Ordered by an unspecified provider. Historical [...] For 1 dose Given 11/20/2017 3:36 PM MILL OPERATOR 60 mg Right Ventrogluteal documented in this encounter Active and Recently Administered Medications Times are shown in MILL OPERATOR. Scheduled Medication Order 11/18/2017 11/19/2017 11/20/2017 [...] 11/20/2017 documented in this encounter Care Teams Physician Assistant Certified Relationship Specialty Start Date End Date Chase Blanchard PCP - General 06/24/09 08/18/22 documented as of this encounter
--- OUTSIDE RECORDS SUMMARY | 2024-10-21 17:43 | XMS_ITS | Encounter Summary ---
Author Organization [facility] Healthcare Address [address] [place] [address] Care Team Providers Care Electroplater Helper Name Role Phone Chase Blanchard Primary Care Provider Unavailabl e Encounter Details Date Type Department Care Team (Late st Contact Info) Description 08/11/2008 12:01 AM CDT - 08/11/2008 11:59 PM CDT Hospital Encounter [facility] Errol Dunne MD [address] [place] [address] [place] [address] Social History Tobacco Use Types Packs/Day Years Used Date Smoking Tobacco: Never Assessed Comments Unknown Sex and Gender Information Value Date Recorded Sex Assigned at Not on file Legal Sex Female 11:56 PM FASHION DESIGNER Gender Identity Not on file Sexual Orientation Not on file documented as of this encounter Plan of Treatment Not on file documented as of this encounter Visit Diagnoses Not on filedocumented in this encounter Care Teams Electroplater Helper Relationship Specialty Start Date End Date Chase Blanchard PCP - General 08/06/08 06/23/09 documented as of this encounter
--- OUTSIDE RECORDS SUMMARY | 2024-10-21 17:43 | XMS_ITS | Encounter Summary ---
Author Organization [facility] Healthcare Address [address] [place] [address] Care Team Providers Care Gate Agent Name Role Phone Chase Blanchard Primary Care Provider Unavailabl e Encounter Details Date Type Department Care Team (Late st Contact Info) Description 11/09/2011 7:13 AM ENGLISH LANGUAGE ARTS TEACHER - 11/09/2011 11:59 PM ENGLISH LANGUAGE ARTS TEACHER Hospital Encounter [facility] CLINCONV Chase Blanchard Enlarged lymph nodes Social History Tobacco Use Types Packs/Day Years Used Date Smoking Tobacco: Never Assessed Alcohol Use Standard Drinks/Week Comments Yes 0 (1 standard drink = 0.6 oz pur e alcohol) Comments Unknown Sex and Gender Information Value Date Recorded Sex Assigned at Not on file Legal Sex Female 11:56 PM ENGLISH LANGUAGE ARTS TEACHER Gender Identity Not on file Sexual Orientation Not on file documented as of this encounter Plan of Treatment Not on file documented as of this encounter Visit Diagnoses Diagnosis Enlarged lymph nodes Enlargement of lymph nodes documented in this encounter Care Teams Gate Agent Relationship Specialty Start Date End Date Chase Blanchard PCP - General 06/24/09 08/18/22 documented as of this encounter
== END 2024-10-18 04:01 | disposition home or self-care (01) ==
PROVIDERS: Student in an Organized Health Care Education/Training Program; Emergency Provider Registered Nurse
DX: R10.32 Left lower quadrant pain (principal); Z20.822 Contact with and (suspected) exposure to COVID-19; Z90.49 Acquired absence of other specified parts of digestive tract; D25.9 Leiomyoma of uterus, unspecified
CPT/HCPCS: 36415; 74177; 80053; 81003; 83690; 84703; 85025; 87637; 96360; 99284; J7030; Q9967

== ENCOUNTER 2025-01-13 16:19 | Emergency (ER) | payer OTHER, SELFPAY ==
--- NOTE | ~2025-01-13 | XR_ITS ---
XR chest 2V Ordering provider: Theron Hugo History: 44 years Female with . left side CP . Comparison: None. FINDINGS: MEDIASTINUM: The cardiac silhouette is not enlarged. LUNGS: No infiltrates, effusions or pneumothorax. OTHER: No free air under the diaphragm. IMPRESSION: No acute cardiopulmonary pathology. Reviewed, dictated and finalized at location A.
[2025-01-13 16:35] VITALS: BP 157/106; PULSE 79; RESP 16; TEMP 36.6; O2SAT 100
--- NOTE | 2025-01-13 16:39 | ECG_ITS ---
Test Date: 2025-01-13 16:44:40 Measurements Intervals [place] Rate: 79 P: 57 HI: 146 QRS: 9 QRSD: 86 T: 30 QT: 376 QTc: 431 Interpretive Statements SINUS RHYTHM No previous ECG available for comparison Electronically Signed On 01-14-2025 13:19:46 CDT by Farnaz Ferrell M.D.
--- NOTE | 2025-01-13 16:41 | ED_ITS ---
HPI - Chest Pain General Chief Complaint: Recheck/Abnormal Lab/Rx <Veronica Wright PA-C - Last Filed: 01/16/25 13:00> Stated Complaint: sent for UC for elevated BP <Veronica Wright PA-C - Last Filed: 01/16/25 13:00> Time Seen by Provider: 01/13/25 16:42 <Veronica Wright PA-C - Last Filed: 01/16/25 13:00> Focused HPI: This is a 44 year old female that presents to the ER for chest pain and tingling in the right arm. Reports some neck stiffness. Reports a rash. Reports associated elevated blood pressure. This has been ongoing the last couple of days. GENERAL: Well-appearing, well-nourished, and in no acute distress. HEAD: Normocephalic, atraumatic. CHEST: Clear to auscultation. ?No respiratory distress. HEART: Regular rate and rhythm.? NEURO: ?Alert and oriented x3. Patient screened in triage and initial orders placed.? ?Additional care and disposition to be based upon?diagnostic testing and treatment. <Veronica Wright PA-C - Last Filed: 01/16/25 13:00> Focused HPI: This is a 44 year old female that presents to the ER for chest pain and tingling in the right arm. Reports a rash. Reports associated elevated blood pressure. This has been ongoing the last couple of days. GENERAL: Well-appearing, well-nourished, and in no acute distress. HEAD: Normocephalic, atraumatic. CHEST: Clear to auscultation. ?No respiratory distress. HEART: Regular rate and rhythm.? NEURO: ?Alert and oriented x3. Patient screened in triage and initial orders placed.? ?Additional care and disposition to be based upon?diagnostic testing and treatment. Agree with triage assessment. Patient states that the chest pressure started this morning when she woke up it was mild and since then resolved. 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 Currently denying any active chest pain, nausea vomiting, any recent illness, fevers or chills. <Rubina Briscoe MD - Last Filed: 01/13/25 20:32> Related Data Allergies/Adverse Reactions: Allergies Allergy/AdvReac Type Severity Reaction Status Date / Time No Known Allergies Allergy Verified 10/17/24 22:40 <Veronica Wright PA-C - Last Filed: 01/16/25 13:00> Review of Systems 2 Review of Systems: All systems are reviewed and are negative unless stated otherwise in the HPI. <Rubina Briscoe MD - Last Filed: 01/13/25 20:32> PMFSH Past Medical History Medical History: Medical History No active medical problems <Veronica Wright PA-C - Last Filed: 01/16/25 13:00> Surgical History Surgical History: Surgical History S/P cholecystectomy <Veronica Wright PA-C - Last Filed: 01/16/25 13:00> Family History Family History: Family History Father Carcinoma of colon Grandparent Carcinoma of colon Family history of malignant neoplasm of ovary <Veronica Wright PA-C - Last Filed: 01/16/25 13:00> Social History Social History: Social History Smoking status: Never smoker Second hand tobacco smoke exposure: No Alcohol intake: current Drinks per week: 5 Substance use: never Substance use type: does not use Living arrangements: alone Occupation/Education: occupation 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 HEENT: PERRL, no rhinorrhea, no post nasal drip, oropharynx clear. Neck: Trachea midline, no JVD, no lymphadenopathy. Cardiovascular: Regular rate and rhythm, no murmurs, rubs or gallops, no peripheral edema. Respiratory: Clear to auscultation bilaterally, no tachypnea, no wheezing, no rhonchi, no rubs, no respiratory distress. Abdomen: Soft, nontender, nondistended, no rebound, no guarding, no peritoneal signs. Musculoskeletal: No joint swelling or deformity, normal muscle tone. Skin: No rashes or petechia, no signs of infection, dry paint on hand which patient states is from her job. Psychiatric: Alert and oriented, normal behavior and judgment for situation. Neurological: Alert and oriented to person, place, and time. Follows all commands. No focal deficits, speech is clear and fluent. <Rubina Briscoe MD - Last Filed: 01/13/25 20:32> Course Vital Signs Vital signs: Vital Signs Temperature 97.9 F 01/13/25 16:35 Pulse Rate 79 01/13/25 16:35 Respiratory Rate 16 01/13/25 16:35 Blood Pressure 157/106 H 01/13/25 16:35 Pulse Oximetry 100 01/13/25 16:35 Temperature 97.9 F 01/13/25 16:35 Pulse Rate 65 01/13/25 20:04 Respiratory Rate 16 01/13/25 20:04 Blood Pressure 152/99 H 01/13/25 20:04 Pulse Oximetry 100 01/13/25 20:04 <Veronica Wright PA-C - Last Filed: 01/16/25 13:00> Vital Signs Temperature 97.9 F 01/13/25 16:35 Pulse Rate 79 01/13/25 16:35 Respiratory Rate 16 01/13/25 16:35 Blood Pressure 157/106 H 01/13/25 16:35 Pulse Oximetry 100 01/13/25 16:35 Temperature 97.9 F 01/13/25 16:35 Pulse Rate 65 01/13/25 20:04 Respiratory Rate 16 01/13/25 20:04 Blood Pressure 152/99 H 01/13/25 20:04 Pulse Oximetry 100 01/13/25 20:04 <Rubina Briscoe MD - Last Filed: 01/13/25 20:32> MDM - Chest Pain MDM Narrative Medical decision making narrative: The patient was evaluated by myself in the emergency department. History is obtained from patient who is an independent historian and physical exam was performed. External medical records were reviewed at this time. IV was established and pertinent tests were ordered. EKG was obtained which revealed sinus rhythm rate of 79 beats per minute. No ST changes, T wave inversions or evidence of acute ischemia. EKG was independently interpreted by me and is currently pending official cardiology read. Laboratory results obtained revealing no acute process. Imaging studies obtained included CXR which was independently interpreted by me revealing no acute cardiopulmonary process, which is pending final radiology interpretation. Differential diagnosis considerations include acute stress reaction, anxiety, hypertensive disease, nerve compression, infectious process such as pneumonia, acute viral syndrome. Comorbidities impacting this visit include none. I have evaluated and discussed social determinants of health with the patient that could potentially impact subsequent diagnosis and treatment plans. On repeat assessment of the patient, reevaluation revealed that the patient is doing well and is in no acute distress. Patient symptoms have improved since she arrived to our emergency department. Repeat vital signs were all reviewed and noted to be stable. Differential diagnosis and treatment plan were discussed with the patient at bedside. Patient agrees with discussion and after shared medical decision making agrees with discharge. All questions were answered to the patient's satisfaction. Patient will follow up with her PCP in 3-5 days. Patient was provided with strict return precautions and instructed to return to the emergency department if any new or worsening symptoms develop. The patient was discharged in stable condition. <Rubina Briscoe MD - Last Filed: 01/13/25 20:32> Lab Data Result diagrams: 01/13/25 17:06 01/13/25 17:06 <Veronica Wright PA-C - Last Filed: 01/16/25 13:00> Labs: Lab Results 01/13/25 Range/Units 17:06 WBC 9.3 (4.5-10.0) K/mm3 RBC 4.69 (4.2-5.4) M/mm3 Hgb 14.5 (12.0-15.0) g/dL Hct 42.0 (37.0-47.0) % MCV 89.6 (80-100) fl MCH 30.9 (26-34) pg MCHC 34.5 (32-36) g/dl RDW 12.3 (11.5-14.5) % Plt Count 364 (150-375) k/mm3 MPV 9.0 (7.4-10.4) fl Immature Gran % (Auto) 0.2 (0-0.5) % Neut % (Auto) 64.4 (45.5-73.1) % Lymph % (Auto) 25.8 (18.3-44.2) % [place] % (Auto) 6.9 (2.6-8.5) % Eos % (Auto) 2.3 (0-4.4) % Baso % (Auto) 0.4 (0.2-1.2) % Lymph # (Auto) 2.41 (0.9-3.2) K/mm3 [place] # (Auto) 0.6 (0.1-0.6) K/mm3 Eos # (Auto) 0.2 (0-0.3) K/mm3 Baso # (Auto) 0.0 (0.0-0.1) K/mm3 Abs Immat Gran (auto) 0.02 (0.00-0.031) K/mm3 Absolute Neuts (auto) 6.0 (1.3-6.7) K/mm3 Absolute Nucleated RBC 0.000 (0.0-0.012) K/mm3 Nucleated RBC % 0.0 (0.0-0.2) % Sodium 139 (137-145) mmol/L Potassium 3.5 (3.4-5.0) mmol/L Chloride 101 (98-107) mmol/L Carbon Dioxide 24 (22-30) mmol/L Anion Gap 14 H (4-12) mmol/L BUN 8 (7-17) mg/dL Creatinine 0.66 L (0.7-1.0) mg/dL Estim Creat Clear Calc 71 ml/min Estimated GFR > 60 (59 - ) Glucose 92 (65-110) mg/dL Calcium 8.8 (8.4-10.2) mg/dL Magnesium 2.0 (1.6-2.3) mg/dL Total Bilirubin 1.1 (0.2-1.3) mg/dL AST 38 H (14-36) U/L ALT 36 H (6-35) U/L Alkaline Phosphatase 59 (38-126) U/L Troponin I < 0.012 (0.000-0.034) ng/mL Total Protein 8.0 (6.3-8.2) g/dL Albumin 5.0 (3.5-5.1) g/dL <Veronica Wright PA-C - Last Filed: 01/16/25 13:00> Lab Results 01/13/25 Range/Units 17:06 WBC 9.3 (4.5-10.0) K/mm3 RBC 4.69 (4.2-5.4) M/mm3 Hgb 14.5 (12.0-15.0) g/dL Hct 42.0 (37.0-47.0) % MCV 89.6 (80-100) fl MCH 30.9 (26-34) pg MCHC 34.5 (32-36) g/dl RDW 12.3 (11.5-14.5) % Plt Count 364 (150-375) k/mm3 MPV 9.0 (7.4-10.4) fl Immature Gran % (Auto) 0.2 (0-0.5) % Neut % (Auto) 64.4 (45.5-73.1) % Lymph % (Auto) 25.8 (18.3-44.2) % [place] % (Auto) 6.9 (2.6-8.5) % Eos % (Auto) 2.3 (0-4.4) % Baso % (Auto) 0.4 (0.2-1.2) % Lymph # (Auto) 2.41 (0.9-3.2) K/mm3 [place] # (Auto) 0.6 (0.1-0.6) K/mm3 Eos # (Auto) 0.2 (0-0.3) K/mm3 Baso # (Auto) 0.0 (0.0-0.1) K/mm3 Abs Immat Gran (auto) 0.02 (0.00-0.031) K/mm3 Absolute Neuts (auto) 6.0 (1.3-6.7) K/mm3 Absolute Nucleated RBC 0.000 (0.0-0.012) K/mm3 Nucleated RBC % 0.0 (0.0-0.2) % Sodium 139 (137-145) mmol/L Potassium 3.5 (3.4-5.0) mmol/L Chloride 101 (98-107) mmol/L Carbon Dioxide 24 (22-30) mmol/L Anion Gap 14 H (4-12) mmol/L BUN 8 (7-17) mg/dL Creatinine 0.66 L (0.7-1.0) mg/dL Estim Creat Clear Calc 71 ml/min Estimated GFR > 60 (59 - ) Glucose 92 (65-110) mg/dL Calcium 8.8 (8.4-10.2) mg/dL Magnesium 2.0 (1.6-2.3) mg/dL Total Bilirubin 1.1 (0.2-1.3) mg/dL AST 38 H (14-36) U/L ALT 36 H (6-35) U/L Alkaline Phosphatase 59 (38-126) U/L Troponin I < 0.012 (0.000-0.034) ng/mL Total Protein 8.0 (6.3-8.2) g/dL Albumin 5.0 (3.5-5.1) g/dL <Rubina Briscoe MD - Last Filed: 01/13/25 20:32> Imaging Data Radiologist's impression: ITS Impressions Chest X-Ray 01/13/25 16:53 IMPRESSION: No acute cardiopulmonary pathology. <Veronica Wright PA-C - Last Filed: 01/16/25 13:00> Critical Care Time Critical Care Time Critical Care Time: No <Veronica Wright PA-C - Last Filed: 01/16/25 13:00> Discharge Plan Discharge Clinical Impression: Atypical chest pain, Arm paresthesia, right Hypertension Qualifiers: Hypertension type: unspecified Qualified Code(s): I10 - Essential (primary) hypertension <Veronica Wright PA-C - Last Filed: 01/16/25 13:00> Patient Disposition: Home, Self-Care <Veronica Wright PA-C - Last Filed: 01/16/25 13:00> Condition: Improved <Veronica Wright PA-C - Last Filed: 01/16/25 13:00> Instructions: Antibiotic Form, Chest Pain (DC), Paresthesia (ED), Hypertension (ED) <Veronica Wright PA-C - Last Filed: 01/16/25 13:00> Additional Instructions: Please follow-up with your family doctor within the next week. You instructed to obtain a blood pressure cuff and monitor blood pressure at home by checking it twice daily, same time every day in the morning and same time every day and night. Your right ulnar nerve paresthesias are likely due to an nerve impingement/compression, this should improve with rest, if not follow-up with your family doctor. Return to the emergency department if any new or worsening symptoms develop. <Veronica Wright PA-C - Last Filed: 01/16/25 13:00> Patient Language: Lao <Veronica Wright PA-C - Last Filed: 01/16/25 13:00> Prescriptions: No Action amoxicillin-pot clavulanate 875-125 mg tablet 1 tablet PO Q12H 10 Days Qty: 20 0RF cyclobenzaprine 5 mg tablet 5 mg PO TID PRN (Reason: muscle spasm) Qty: 5 0RF <Veronica Wright PA-C - Last Filed: 01/16/25 13:00> Follow-up/Referrals: PHYSICIAN NOT ON STAFF,NONSTAFF [Primary Care Provider] - Harsha San MD [Physician] - 3 Days <Veronica Wright PA-C - Last Filed: 01/16/25 13:00> Time of Disposition: 20:27 <Veronica Wright PA-C - Last Filed: 01/16/25 13:00> 20:27 <Rubina Briscoe MD - Last Filed: 01/13/25 20:32>
[2025-01-13 17:15] LABS: Basophils Percent Auto 0.4 % (0.2-1.2); Eosinophils Absolute Auto 0.2 K/mm3 (0-0.3); Eosinophils Percent Auto 2.3 % (0-4.4); Hemoglobin 14.5 g/dL (12.0-15.0); Immature Granulocyte Absolute 0.02 K/mm3 (0.00-0.031); Immature Granulocyte Percent A 0.2 % (0-0.5); Lymphocytes Absolute Auto 2.41 K/mm3 (0.9-3.2); Lymphocytes Percent Auto 25.8 % (18.3-44.2); Mean Corpuscular HGB Conc 34.5 g/dl (32-36); Mean Corpuscular Hemoglobin 30.9 pg (26-34); Mean Corpuscular Volume 89.6 fl (80-100); Monocytes Absolute Auto 0.6 K/mm3 (0.1-0.6); Monocytes Percent Auto 6.9 % (2.6-8.5); Neutrophils Percent Auto 64.4 % (45.5-73.1); Platelet Count Result 364 k/mm3 (150-375); Red Blood Count 4.69 M/mm3 (4.2-5.4); Red Cell Distribution Width 12.3 % (11.5-14.5); White Blood Count 9.3 K/mm3 (4.5-10.0)
[2025-01-13 17:25] LABS: Alanine Aminotransferase 36 U/L (6-35); Alkaline Phosphatase 59 U/L (38-126); Anion Gap 14 mmol/L (4-12); Aspartate Amino Transferase 38 U/L (14-36); Bilirubin,Total 1.1 mg/dL (0.2-1.3); Blood Urea Nitrogen 8 mg/dL (7-17); Calcium 8.8 mg/dL (8.4-10.2); Carbon Dioxide 24 mmol/L (22-30); Chloride 101 mmol/L (98-107); Estimated CRCL calculation 71 ml/min; Estimated Glomerular Filt Rate > 60; Glucose 92 mg/dL (65-110); Potassium 3.5 mmol/L (3.4-5.0); Sodium 139 mmol/L (137-145)
[2025-01-13 17:36] LABS: Troponin I < 0.012 ng/mL (0.000-0.034)
--- OUTSIDE RECORDS SUMMARY | 2025-01-13 18:04 | XMS_ITS | Encounter Summary ---
Author Organization [facility] Healthcare Address [address] [place] [address] Care Team Providers Care Expediter Clerk Name Role Phone Demar Ceballos MD Primary Care Provider [phone] Demar Ceballos MD Unavailable [phone] Reason for Visit * Reason Comments Chest Pain Patient here for c/o chest pain that started today and rash on legs and arms. States has also had tingling in right arm and hand that started a few days ago. Encounter Details Date Type Department Care Team (Late st Contact Info) Description 01/13/2025 3:30 PM CDT Office Visit [facility] Care at [address] [address] Louisa Mcclelland, GRAPE CUTTER [address] [place] [address] Chest pain, unspecified type (Primary Dx); Numbness and tingling of right arm; Rash and nonspecific skin eruption Social History Tobacco Use Types Packs/Day Years Used Date Smoking Tobacco: Never Smokeless Tobacco: Never Alcohol Use Standard Drinks/Week Comments Yes 0 (1 standard drink = 0.6 oz pur e alcohol) on occasion Comments Unknown Sex and Gender Information Value Date Recorded Sex Assigned at Not on file 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 Gender Identity Not on file Sexual Orientation Not on file documented as of this encounter Last Filed Vital Signs Vital Sign Reading Time Taken Comments Blood Pressure 156/122 01/13/2025 3:15 PM CDT Pulse 90 01/13/2025 3:10 PM CDT Temperature 36.7 C (98.1 F) 01/13/2025 3:10 PM CDT Respiratory Rate 16 01/13/2025 3:10 PM CDT Oxygen Saturation 99% 01/13/2025 3:10 PM CDT Inhaled Oxygen Concentration - - Weight 56.7 kg (125 lb) 01/13/2025 3:10 PM CDT Height 156.2 cm (5' 1.5 ) 01/13/2025 3:10 PM CDT Body Mass Index 23.24 01/13/2025 3:10 PM CDT documented in this encounter Patient Instructions * Patient Instructions* Sharla Romero MA - 01/13/2025 3:30 PM CDT Please evaluate patient regarding her persistent chest pain since this am. Patient has also had right arm tingling x 2 days. B/p was 156/122 in the office. documented in this encounter Plan of Treatment Not on file documented as of this encounter Visit Diagnoses Diagnosis Chest pain, unspecified type- Primary Numbness and tingling of right arm Rash and nonspecific skin eruption Rash and other nonspecific skin eruption documented in this encounter Care Teams Expediter Clerk Relationship Specialty Start Date End Date Demar Ceballos MD PCP - General Internal Medicine 08/03/23 Demar Ceballos MD Internal Medicine 08/03/23 documented as of this encounter
--- OUTSIDE RECORDS SUMMARY | 2025-01-13 18:04 | XMS_ITS | Encounter Summary ---
Author Organization [facility] Healthcare Address [address] [place] [address] Care Team Providers Care Die Maker Bench Stamping Name Role Phone Demar Ceballos MD Primary Care Provider [phone] Demar Ceballos MD Unavailable [phone] Encounter Details Date Type Department Care Team (Late st Contact Info) Description 01/13/2025 Telephone [facility] Medical [facility] at [place] [place] [address] [place] [address] [place] [address] [address] [place], [place] [id number] Social History Tobacco Use Types Packs/Day Years Used Date Smoking Tobacco: Never Smokeless Tobacco: Never Alcohol Use Standard Drinks/Week Comments Yes 0 (1 standard drink = 0.6 oz pur e alcohol) on occasion Comments Unknown Sex and Gender Information Value Date Recorded Sex Assigned at Not on file 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 Asked that she call back with new ins information. documented in this encounter Plan of Treatment Not on file documented as of this encounter Visit Diagnoses Not on filedocumented in this encounter Care Teams Die Maker Bench Stamping Relationship Specialty Start Date End Date Demar Ceballos MD PCP - General Internal Medicine 08/03/23 Demar Ceballos MD Internal Medicine 08/03/23 documented as of this encounter
--- OUTSIDE RECORDS SUMMARY | 2025-01-13 18:04 | XMS_ITS | Patient Health Record ---
Author Organization [facility] Address [address] [place], [place] [phone] Care Team Providers Care Broadcast Operations Manager Name Role Phone Chase Blanchard Primary Care Provider Casey Polanco Unavailable [phone] Migration, Provider Unavailable Unavailable Reason For Referral No Information Medications Medication SIG (Take, Route, Frequency, Duration) Notes Start Date End Date Status Albuterol Sulfate *Please review and pick correct strength-formulation from Wevebob options. If intended option is not shown, discontinue and re-order from Quick Search* Active CEDAX 400 MG 1 CAP(S) ORALLY ONCE A DAY for 14 DAY(S) *Please review for potential replacement for e-prescription and drug interaction check* 11/22/2011 Active Problems Problem Type SNOMED Code ICD Code Onset Dates Problem Status W/U Status Risk Notes Problem Mass in head or neck (995980123) Swelling, mass, or lump in head and neck (784.2) Active confirmed Problem Lymphadenopathy (07898385) Lymphadenopathy NOS (785.6) Active confirmed Encounters Encounter Location Date Provider Diagnosis [email or web address] [address] [place], [place] [id number] 10/18/2024 Provider Migration Lymphadenopathy NOS 785.6 Assessments Encounter Date Diagnosis (ICD Code) Assessment Notes Treatment Notes Treatment Clinical Notes Section Notes 10/18/2024 Lymphadenopathy NOS (ICD9-CM - 785.6) Plan Of Treatment No Information Insurance Providers Payer Name Payer Address Payer Phone Subscriber Number Group Number Insured Name Patient Relationship to Insured Coverage Start Date Coverage End Date [facility] [address] [address] [place] [address] [phone] [id number] Nydia Da Silva Self - patient is the insured Medical (General) History Medical History History ICD Code Pertinent Medical History: Asthma, Migra ine headaches Surgical History Surgery Date(Month/Year) Gallbladder removed 2004
--- OUTSIDE RECORDS SUMMARY | 2025-01-13 18:04 | XMS_ITS ---
Author Organization [facility] Address [address] [facility] [address] [place], [place] [phone] Care Team Providers Care Assembler Deck And Hull Name Role Phone Chsae Blanchard Primary Care Provider UnavailCasey Castro Unavailable [phone] Migration, Provider Unavailable Unavailable REASON FOR VISIT [...] Active Encounters Encounter Location Date Provider Diagnosis [facility] [address] [facility] [address] [place], [place] [phone] 10/18/2024 Provider Migration Lymphadenopathy NOS 785.6 Assessments [...] Nydia DA SILVA LDOB:1980 (44 yo F)Acc No.[id number]:10/18/2024 Patient: Ten MALLORIEMikey Quintanillajuanita Ramos Provider: Ferdinand guy Migration :1980 A ge:44 Y S ex:Female Date:10/18/2024 Address:[address] [place], [place] [id number] Pcp:Chase Blanchard Subjective: * Chief Complaints: * 1 . Multum To Medispan Conversion Encounter. * Medical History: * Medications: T aking Albuterol Sulfate , Notes to Pharmacist: *Please review and pick correct strength-formulation from Medispan options. If intended option is not shown, discontinue and re-order from Quick Search* Objective: * Vitals: * Physical Examination: Assessment: * Assessment: 1. L ymphadenopathy NOS - 785.6 (Primary) Plan: * Treatment: * * Electronic signature of Miky sewell Migration on 01/13/2025 at 02:57 PM CDT Sign off status: Pending * Provider: Ferdinand guy Migration Date: 1 12/19/2023 Generated for Preston sierra/Keyur/Luisitting on: 0 01/13/2025 02:57 PM CDT
--- OUTSIDE RECORDS SUMMARY | 2025-01-13 18:04 | XMS_ITS | Clinical Summary ---
Author Organization [facility] Address [address] [facility] [address] [place] [address] Phone Care Team Providers Care Sas Etl Developer Name Role Phone Provider, None Primary Care [...] Comments Blood Pressure 102/62 10/18/2015 1:41 PM MACHINE I ENGRAVER Pulse 71 10/18/2015 1:41 PM MACHINE I ENGRAVER Temperature 36.3 C (97.3 F) 10/18/2015 1:41 PM MACHINE I ENGRAVER Respiratory Rate 16 10/18/2015 1:41 PM MACHINE I ENGRAVER Oxygen Saturation 98% 10/18/2015 1:41 PM MACHINE I ENGRAVER Inhaled Oxygen Concentration - - Weight 54.1 kg (119 lb 3.2 oz) 10/18/2015 1:41 P M MACHINE I ENGRAVER Height 154.9 cm (5' 1 ) 10/18/2015 1:41 PM MACHINE I ENGRAVER Body Mass Index 22.52 10/18/2015 1:41 PM MACHINE I ENGRAVER Plan of Treatment Health Maintenance Due Date Last Done Comments Hepatitis C Virus (HCV) Screening 1980 TdaP Immunization 1981 Hepatitis B Immunization (1 of 3 - 19+ 3-dose series) 2000 Pneumococcal Immunization Co mbined (1 of 2 - PCV) 2000 Pap Smear 2002 Cervical Cancer Screening (CCS) 2011 HPV/Cotest 2011 Discussion re Starting/Frequ ency of Mammograms 2021 Influenza Immunization (#1) 2024 SARS-COV-2 Immunization ( - season) 2024 Respiratory Syncytial Virus (RSV) Immunization (Adult) (1 - 1-dose 75+ series) 2056 Meningococcal Immunization (ACWY) Aged Out No longer eligible based on patient's age to complete this topic Rotavirus Immunization Aged Out No lo nger eligible based on patient's age to complete this topic Care Teams Sas Etl Developer Relationship Specialty Start Date End Date Provider, None [place] PCP - General 04/21/21
--- OUTSIDE RECORDS SUMMARY | 2025-01-13 18:04 | XMS_ITS | Referral Summary ---
Author Organization [address] Address [address] [place] [address] Care Team Providers Care Office Manager Name Role Phone Demar Ceballos MD Primary Care Provider [phone] Demar Ceballos MD Unavailable [phone] Encounters Date Type Department Care Team Description 01/13/[address] [facility] Convenient Care at [address] [address] Louisa Mcclelland NP 01/13/2025 3:30 PM CDT Office Visit [facility] at [address] [address] Louisa Mcclelland NP Chest pain, unspecified type (Primary Dx); Numbness and tingling of right arm; Rash and nonspecific skin eruption from Last 3 Months Allergies No known active allergies Medications cyclobenzaprine (FLEXERIL) 10 mg tablet Take 1 tablet (10 mg total) by mouth every 8 (eight) hours as needed for muscle spasms. 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
--- OUTSIDE RECORDS SUMMARY | 2025-01-13 18:04 | XMS_ITS | Clinical Summary ---
Author Organization [address] Address [address] [place] [address] Care Team Providers Care Refrigerator Repair Technician Name Role Phone Demar Ceballos MD Primary Care Provider [phone] Demar Ceballos MD Unavailable [phone] Allergies No known active allergies Medications cyclobenzaprine [...] migraine 05/19/2014 Overview (02/08/2017): MGRN UNSP [facility] MGR STD Asthma 03/21/2014 Overview (02/09/2017): ASTHMA NOS Encounters Date Type Department Care Team Description 01/13/2025 3:30 PM CDT Office Visit [facility] Care at [address] [address] Louisa Mcclelland, MARGARITO Chest pain, unspecified type (Primary Dx); Numbness and tingling of right arm; Rash and nonspecific skin eruption 01/13/2025 Telephone [facility] Care at [address] [address] Louisa Mcclelland NP from Last 3 Months Surgical History Surgery Date Site/Laterality Comments CHOLECYSTECTOMY [...] on file 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 Gender Identity Not on file Sexual [...] 01/13/2025 3:10 PM CDT Plan of Treatment Health Maintenance Due Date Last Done Comments Breast Cancer Screening-Mammogram 1981 Cervical Cancer Screening 1981 Depression Screening 1981 Hepatitis C Screening 1981 DTaP/Tdap/Td Vaccine (1 - Tdap) 1992 Varicella Vaccines (1 of 2 - 13+ 2-dose series) 1994 Hepatitis B Screening 1999 Regular Well Visit/Exam 18-64 1999 Pneumococcal vaccine <65 (1 of 2 - PCV) 2000 Influenza Vaccine (#1) 2024 HPV Vaccines Aged Out No longer eligi ble based on patient's age to complete this topic Insurance [facility] Care Teams Refrigerator Repair Technician Relationship Specialty Start Date End Date Demar Ceballos MD PCP - General Internal Medicine 08/03/23 Demar Ceballos MD Internal Medicine 08/03/23
[2025-01-13 20:04] VITALS: BP 152/99; PULSE 65; RESP 16; O2SAT 100
--- OUTSIDE RECORDS SUMMARY | 2025-01-13 20:23 | XMS_ITS | Encounter Summary ---
Author Organization [facility] Healthcare Address [address] [place] [address] Care Team Providers Care Proposition Player Name Role Phone Demar Ceballos MD Primary Care Provider [phone] Demar Ceballos MD Unavailable [phone] Reason for Visit * Reason Comments Chest Pain Patient here for c/o chest pain that started today and rash on legs and arms. States has also had tingling in right arm and hand that started a few days ago. 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
--- OUTSIDE RECORDS SUMMARY | 2025-01-13 20:23 | XMS_ITS | Referral Summary ---
Author Organization [address] Address [address] [place] [address] Care Team Providers Care Wool Sampler Name Role Phone Demar Ceballos MD Primary Care Provider [phone] Demar Ceballos MD Unavailable [phone] Encounters Date Type Department Care Team Description 01/13/2025 Telephone [facility] Con[facility]ient Care at [address] [address] Louisa Mcclelland NP 01/13/2025 3:30 PM CDT Office Visit [facility] Care at [address] [address] Louisa Mcclelland NP Chest pain, [...] on file 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
--- OUTSIDE RECORDS SUMMARY | 2025-01-13 20:23 | XMS_ITS | Encounter Summary ---
Author Organization [facility] Healthcare Address [address] [place] [address] Care Team Providers Care Collector Of Aquarium Specimens Name Role Phone Demar Ceballos MD Primary Care Provider [phone] Demar Ceballos MD Unavailable [phone] Encounter Details Date Type Department Care Team (Late st Contact Info) Description 01/13/2025 Telephone [facility] Medical Group Convenient Care at [place] [id number] [place] [address] [place] [address] [place] [address] [address] [place], [place] [id number] Social History Tobacco Use Types Packs/Day Years Used Date Smoking Tobacco: Never Smokeless Tobacco: Never Alcohol Use Standard Drinks/Week Comments Yes 0 (1 standard drink = 0.6 oz pur e alcohol) on occasion Comments Unknown Sex and Gender Information Value Date Recorded Sex Assigned at Not on file 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
--- OUTSIDE RECORDS SUMMARY | 2025-01-13 20:23 | XMS_ITS | Clinical Summary ---
Author Organization [address] Address [address] [place] [address] Care Team Providers Care Miter Operator Name Role Phone Demar Ceballos MD Primary Care Provider [phone] Demar Ceballos MD Unavailable [phone] Allergies No known active allergies Medications cyclobenzaprine [...] migraine 05/19/2014 Overview (02/08/2017): MGRN UNSP W [facility] MGR STD Asthma 03/21/2014 Overview (02/09/2017): ASTHMA NOS Encounters Date Type Department Care Team Description 01/13/2025 3:30 PM CDT Office Visit [facility] Care at [address] [address] Louisa Mcclelland, MARGARITO Chest pain, unspecified type (Primary Dx); Numbness and tingling of right arm; Rash and nonspecific skin eruption 01/13/2025 Telephone [facility] Con[facility]ient Care at [address] [address] Louisa Mcclelland NP from Last [...] file 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
--- OUTSIDE RECORDS SUMMARY | 2025-01-13 20:23 | XMS_ITS | Clinical Summary ---
Author Organization [facility] Address [address], [facility] [address] [place] [address] Phone Care Team Providers Care Grinding Machine Tender Name Role Phone Provider, None Primary Care [...] Comments Blood Pressure 102/62 10/18/2015 1:41 PM RF MANAGER Pulse 71 10/18/2015 1:41 PM RF MANAGER Temperature 36.3 C (97.3 F) 10/18/2015 1:41 PM RF MANAGER Respiratory Rate 16 10/18/2015 1:41 PM RF MANAGER Oxygen Saturation 98% 10/18/2015 1:41 PM RF MANAGER Inhaled Oxygen Concentration - - Weight 54.1 kg (119 lb 3.2 oz) 10/18/2015 1:41 P M RF MANAGER Height 154.9 cm (5' 1 ) 10/18/2015 1:41 PM RF MANAGER Body Mass Index 22.52 10/18/2015 1:41 PM RF MANAGER Plan of Treatment Health Maintenance Due Date [...] age to complete this topic Care Teams Grinding Machine Tender Relationship Specialty Start Date End Date Provider, None [place] PCP - General 04/21/21
== END 2025-01-13 20:34 | disposition home or self-care (01) ==
PROVIDERS: Student in an Organized Health Care Education/Training Program; Emergency Provider Emergency Medicine
DX: R07.89 Other chest pain (principal); R20.2 Paresthesia of skin
CPT/HCPCS: 36415; 71046; 80053; 83735; 84484; 85025; 93005; 99284